=== PATIENT | male | born 1940 | race Caucasian/White ===

== ENCOUNTER → 2020-01-08 09:26 | Outpatient (BNVA) | payer MEDICARE, OTHER, SELFPAY | PROVIDERS: Family Provider Nurse Practitioner Family; PCP Nurse Practitioner Family; Visit Provider Nurse Practitioner | DX: I10 Essential (primary) hypertension (principal); E55.9 Vitamin D deficiency, unspecified; M19.90 Unspecified osteoarthritis, unspecified site; E05.90 Thyrotoxicosis, unspecified without thyrotoxic crisis or storm; E78.5 Hyperlipidemia, unspecified; N40.1 Benign prostatic hyperplasia with lower urinary tract symptoms | CPT/HCPCS: 80053; 80061; 81000; 82306; 82607; 84443; 85025 ==

== ENCOUNTER → 2020-06-29 10:17 | Outpatient (BNVA) | payer MEDICARE, OTHER, SELFPAY | PROVIDERS: Family Provider Nurse Practitioner Family; PCP Nurse Practitioner Family; Visit Provider Nurse Practitioner Family | DX: Z12.5 Encounter for screening for malignant neoplasm of prostate (principal); E05.90 Thyrotoxicosis, unspecified without thyrotoxic crisis or storm; I10 Essential (primary) hypertension; N40.1 Benign prostatic hyperplasia with lower urinary tract symptoms; M19.90 Unspecified osteoarthritis, unspecified site; E55.9 Vitamin D deficiency, unspecified; K59.00 Constipation, unspecified | CPT/HCPCS: 80053; 80061; 84443; 85025; G0103 ==

== ENCOUNTER → 2020-08-08 08:35 | Outpatient (BNVA) | payer MEDICARE, OTHER, SELFPAY | PROVIDERS: Family Provider Nurse Practitioner Family; PCP Nurse Practitioner Family; Visit Provider Urology | DX: R97.20 Elevated prostate specific antigen [PSA] (principal); N40.1 Benign prostatic hyperplasia with lower urinary tract symptoms; N52.1 Erectile dysfunction due to diseases classified elsewhere | CPT/HCPCS: 81003; 84153 ==

== ENCOUNTER → 2020-12-07 08:18 | Outpatient (BNVA) | payer MEDICARE, OTHER, SELFPAY | PROVIDERS: Family Provider Nurse Practitioner Family; PCP Nurse Practitioner Family; Visit Provider Urology | DX: R33.9 Retention of urine, unspecified (principal); R97.20 Elevated prostate specific antigen [PSA] | CPT/HCPCS: 81003; G0103 ==

== ENCOUNTER 2021-01-02 12:50 | Outpatient (CLI) | payer MEDICARE, OTHER, SELFPAY ==
--- NOTE | 2021-01-02 14:30 | CTR_ITS ---
PROCEDURE INFORMATION: Exam: CT Abdomen And Pelvis With Contrast Exam date and time: 01/02/2021 1:27 PM Age: 80 years old Clinical indication: Abdominal pain; Generalized; Prior surgery; Surgery type: RT hip; Patient HX: Centralized abd pain, HX of skin cancer; Additional info: R10.9 - unspecified abdominal pain TECHNIQUE: Imaging protocol: Computed tomography of the abdomen and pelvis with contrast. Radiation optimization: All CT scans at this facility use at least one of these dose optimization techniques: automated exposure control; mA and/or kV adjustment per patient size (includes targeted exams where dose is matched to clinical indication); or iterative reconstruction. Contrast material: OMNI 300; Contrast volume: 95 ml; Contrast route: INTRAVENOUS (IV); COMPARISON: No relevant prior studies available. RADIATION DOSE METRICS: Total DLP (mGy-cm): 1637.77 FINDINGS: Lungs: Mild atelectasis versus fibrosis noted at the lung bases. Liver: Unremarkable. No mass. Gallbladder and bile ducts: Small calcified gallstones are seen in the dependent portion of the gallbladder. There are no secondary signs of cholecystitis. No biliary dilatation. Pancreas: The pancreas is normal in appearance. No pancreatic duct dilatation. Spleen: The spleen is normal in size and appearance. Adrenal glands: Nonspecific 3.7 cm left adrenal mass noted. Right adrenal gland is unremarkable. Kidneys and ureters: The kidneys are normal in morphology. No hydronephrosis. No solid mass. Stomach and bowel: No acute gastric abnormality demonstrated. The small bowel is unremarkable as demonstrated. Minimal diverticulosis of the colon. No acute diverticulitis. Appendix: No evidence of appendicitis. Intraperitoneal space: No pneumoperitoneum. No significant fluid collection. Vasculature: The aorta is atherosclerotic. No aortic aneurysm. Lymph nodes: No pathologically enlarged lymph nodes are demonstrated. Urinary bladder: The urinary bladder is unremarkable in appearance. Reproductive: Mild prostate gland enlargement noted. Bones/joints: Right hip prosthesis noted. Scoliosis and degeneration of the lumbar spine noted. Soft tissues: Unremarkable. CT/CT abdomen pelvis w con* [id number] IMPRESSION: 1. Right hip prosthesis noted. 2. Small calcified gallstones are seen in the dependent portion of the gallbladder. There are no secondary signs of cholecystitis. No biliary dilatation. 3. Nonspecific 3.7 cm left adrenal mass noted. Non-emergent adrenal CT is recommended. Non-emergent chemical shift MRI (CS-MR) may be considered. (Reference: Carmen) 4. Mild prostate gland enlargement noted. 5. No acute abnormality demonstrated in the abdomen and pelvis. REFERENCES: Carmen HAZEL, et al. Management of Incidental Adrenal Masses: A White Paper of the ACR Incidental Findings Committee. J Am Cynthia Radiol. 2017;14(8):9133-8162. Radiation Dose CTDIVOL = (mGy): DLP = 1637.77 (mGy-cm)
[2021-01-02] MEDS: iohexol 300 mg/mL 100 mL Btl IV (15:23)
[2021-01-02] MEDS: iohexol 300 mg/mL 50 mL Btl PO (15:27)
== END 2021-01-02 12:51 | disposition home or self-care (01) ==
LOC: RAD 12:58
PROVIDERS: PCP Nurse Practitioner Family; Visit Provider Nurse Practitioner Family
DX: R10.9 Unspecified abdominal pain (principal); K80.80 Other cholelithiasis without obstruction; N40.0 Benign prostatic hyperplasia without lower urinary tract symptoms; E05.90 Thyrotoxicosis, unspecified without thyrotoxic crisis or storm
CPT/HCPCS: 74177; 80053; 80061; 84443; 85025

== ENCOUNTER 2021-01-27 08:10 | Outpatient (CLI) | payer MEDICARE, OTHER, SELFPAY ==
--- NOTE | 2021-01-27 08:00 | US_ITS ---
WS: [id number] RIGHT UPPER QUADRANT ULTRASOUND HISTORY: R10.11 - Right upper quadrant pain COMPARISON: None available. Liver: 16.6 cm in length. Normal size liver. No bile duct dilatation or mass. Gallbladder: Normally distended gallbladder with numerous small stones in the lumen. CBD: 0.3 cm Pancreas: Completely obscured by bowel gas. Right kidney: 10.4 cm in length. Normal size and echogenicity. No hydronephrosis or mass. Aorta and IVC: Poorly visualized. No ascites. US/US gall bladder [id number] IMPRESSION: 1. Cholelithiasis without evidence for acute cholecystitis. No bile duct dilat ation. 2. Negative liver.
== END 2021-01-27 08:11 | disposition home or self-care (01) ==
LOC: US 08:11
PROVIDERS: PCP Nurse Practitioner Family; Visit Provider Surgery
DX: R10.11 Right upper quadrant pain (principal); K80.20 Calculus of gallbladder without cholecystitis without obstruction
CPT/HCPCS: 76705

== ENCOUNTER 2021-02-02 09:01 | Outpatient (CLI) | payer MEDICARE, OTHER, SELFPAY ==
--- NOTE | 2021-02-02 09:10 | FL_ITS ---
WS: [id number] ESOPHAGRAM WITH FLUOROSCOPY HISTORY: DYSPHAGIA COMPARISON: None available. FLUOROSCOPY TIME: 1.5 minutes. Esophagus and swallowing function: Patient swallowed the barium mixture without difficulty. Tertiary contractions and dysmotility noted throughout the esophagus with pharyngeal coating of the barium aft er swallowing. No high-grade area of stenosis. Prominent pharyngeal pouch on the LEFT. Cricopharyngea l spasm and large vertebral body osteophytes encroach upon the cervical esophagus at the C6-7 level. Very mild narrowing of the distal esophagus. The barium tablet was held up briefly at the GE junction . Gastroesophageal reflux: Delayed emptying of the esophagus with to and fro motion. Hiatal hernia: Small reducible. FL/FL barium swallow [id number] IMPRESSION: 1. No high-grade stricture or soft tissue mass identified. 2. Large osteophytes at C6-7 encroach upon the posterior cervical esophagus an d there is a large LEFT lateral pharyngeal pouch. 3. Tertiary contractions within the esophagus with delay in emptying. 4. Very mild narrowing of the distal esophagus but the barium tablet was only briefly delayed before exiting into the stomach.
--- NOTE | 2021-02-02 09:10 | CT_ITS ---
WS: [id number] CT NECK WITH CONTRAST HISTORY: DYSPHAGIA TECHNIQUE: Contiguous 5 mm axial images are performed through the neck with intravenous contrast. Sag ittal and coronal reformats are also submitted. All CT scans at [facility] use at least o ne of these dose optimization techniques: automated exposure control; mA and/or kV adjustment per pat ient size (includes targeted exams where dose is matched to clinical indication); or iterative recons truction. CONTRAST: CONTRAST: Omnipaque 300; 95 mL IV. DLP: 1323.53 mGycm COMPARISON: None available. Significant amount of beam hardening artifact through the tongue base from dental amalgam. There is v carlos eduardo slight prominence at the tongue base by believe this is artifact and distortion. There is no iden tifiable oropharyngeal lesion or mass. Torus tubarius and fossa of Rosenmuller and parapharyngeal fat are normal. Small bilateral cervical chain lymph nodes. These lymph nodes are not enlarged. Thyroid gland and salivary glands are normally enhancing with no masses. Increase in the cervical lordosis. Disc space narrowing and degeneration most significant at C3-4 and C6-7 and C7-T1. Visualized portions of the skull base demonstrate no abnormalities. Orbits and globes are within norm al limits. No soft tissue masses. Moderate amount of calcified plaque in the extracranial carotid bif urcations. Stenosis less than 50%. Intracranial carotid artery plaque is also identified. Visualized paranasal sinuses and mastoid air cells are normal. Lung apices are clear. Moderate calcification in the aortic arch. CT/CT neck w con* [id number] IMPRESSION: 1. Artifact from patient's dental amalgam is obscuring portions of the tongue base and oral pharynx. 2. No identifiable soft tissue mass or adenopathy. 3. Moderate atherosclerosis of the intracranial and extracranial carotid arter ies. No high-grade stenosis.
[2021-02-02] MEDS: iohexol 300 mg/mL 100 mL Btl IV (09:41)
== END 2021-02-02 09:02 | disposition home or self-care (01) ==
LOC: RADWPI 09:06
PROVIDERS: PCP Nurse Practitioner Family; Visit Provider Specialist
DX: R13.10 Dysphagia, unspecified (principal); I65.29 Occlusion and stenosis of unspecified carotid artery; M25.78 Osteophyte, vertebrae
CPT/HCPCS: 70491; 74220; Q9967

== ENCOUNTER 2021-02-03 08:14 | Outpatient (CLI) | payer MEDICARE, OTHER, SELFPAY ==
--- NOTE | 2021-02-03 08:23 | FL_ITS ---
WS: [id number] Exam: FL barium swallow modifd [id number] Date/Time of Exam: 02/03/2021 8:50 AM Reason For Exam: Other dysphagia Fluoroscopy time: minutes Modified barium swallow was performed in conjunction with the speech therapy service. Swallowing function at the level of oropharynx was normal. There was no aspiration or penetration int o the laryngeal inlet. The patient tolerated thin liquid, thick liquid, pudding consistency, nectar c onsistency, and solid barium mixture foodstuffs without difficulty. The patient ingested the barium p ill without difficulty. The barium pill passed into the stomach without delay. FL/FL barium swallow modifd [id number] IMPRESSION: 1. Normal swallowing function. No indication of aspiration or penetration. A report of findings and recommendations will also be provided by the speech th erapy department.
== END 2021-02-03 08:15 | disposition home or self-care (01) ==
LOC: RAD 08:16
PROVIDERS: PCP Nurse Practitioner Family; Visit Provider Specialist
DX: R13.10 Dysphagia, unspecified (principal)
CPT/HCPCS: 74230; 92611

== ENCOUNTER → 2021-06-08 08:36 | Outpatient (BNVA) | payer MEDICARE, OTHER, SELFPAY | PROVIDERS: PCP Nurse Practitioner Family; Visit Provider Urology | DX: R97.20 Elevated prostate specific antigen [PSA] (principal); N40.1 Benign prostatic hyperplasia with lower urinary tract symptoms; R33.9 Retention of urine, unspecified; N52.1 Erectile dysfunction due to diseases classified elsewhere | CPT/HCPCS: 81003; 84153 ==

== ENCOUNTER → 2021-06-28 15:55 | Outpatient (BNVA) | payer MEDICARE, OTHER, SELFPAY | PROVIDERS: PCP Nurse Practitioner Family; Visit Provider Nurse Practitioner Family | DX: E05.90 Thyrotoxicosis, unspecified without thyrotoxic crisis or storm (principal); I10 Essential (primary) hypertension; E55.9 Vitamin D deficiency, unspecified; K59.00 Constipation, unspecified | CPT/HCPCS: 80053; 80061; 82306; 84443; 85025 ==

== ENCOUNTER → 2021-11-20 15:51 | Outpatient (BNVA) | payer MEDICARE, OTHER, SELFPAY | PROVIDERS: PCP Nurse Practitioner Family; Visit Provider Nurse Practitioner Family | DX: I10 Essential (primary) hypertension (principal); E78.5 Hyperlipidemia, unspecified; E05.90 Thyrotoxicosis, unspecified without thyrotoxic crisis or storm; K59.00 Constipation, unspecified; K21.9 Gastro-esophageal reflux disease without esophagitis; M19.90 Unspecified osteoarthritis, unspecified site | CPT/HCPCS: 80053; 80061; 84443; 85025 ==

== ENCOUNTER 2022-06-12 08:39 | Outpatient (CLI) | payer MEDICARE, SELFPAY ==
[2022-06-12 09:45] LABS: Prostate Specific AG Urology 13.56 ng/mL (0-4)
== END 2022-06-12 08:40 | disposition home or self-care (01) ==
LOC: LAB 08:49
PROVIDERS: PCP Nurse Practitioner Family; Visit Provider Urology
DX: R97.20 Elevated prostate specific antigen [PSA] (principal); N40.1 Benign prostatic hyperplasia with lower urinary tract symptoms; N52.1 Erectile dysfunction due to diseases classified elsewhere
CPT/HCPCS: 36415; 81003; 84153; 99213

== ENCOUNTER 2022-07-15 09:38 | Emergency (ER) | payer MEDICARE, SELFPAY ==
[2022-07-15 09:45] VITALS: BP 153/79; PULSE 102; RESP 16; TEMP 37.9; O2SAT 89; BMI 28.1
--- NOTE | 2022-07-15 10:06 | XRR_ITS ---
PROCEDURE INFORMATION: Exam: XR Chest Exam date and time: 07/15/2022 11:23 AM Age: 81 years old Clinical indication: Cough and dyspnea. TECHNIQUE: Imaging protocol: Radiologic exam of the chest. Views: 1 view. COMPARISON: CR XR chest 2V* [id number] 02/18/2018 4:21 PM FINDINGS: Lungs: There is mild peribronchial wall thickening. No pulmonary consolidation. Pleural spaces: No pleural effusion. No pneumothorax. Heart/Mediastinum: The heart appears larger which may be exaggerated by reduced lung volumes and AP technique. No gross evidence of pneumomediastinum. Bones/joints: Old right-sided rib fractures are noted. No gross fracture. XR/XR chest 1V portable [id number] IMPRESSION: 1. Mild peribronchial wall thickening; query viral infection/bronchitis, chronic bronchitis and/or asthma. 2. The heart appears larger which may be exaggerated by reduced lung volumes and AP technique.
--- NOTE | 2022-07-15 10:11 | W.ED.GENADLT ---
HPI - General Adult General: Chief complaint: General Medical Stated complaint: sore throat and cough Time Seen by Provider: 07/15/22 10:04 Source: patient Mode of arrival: ambulatory Limitations: no limitations History of Present Illness: 81-year-old male presents emergency room with complaint of sore throat for the last week. He was seen earlier this week and started on amoxicillin for the sore throat he states he is not really had much relief of symptoms. He gets short of breath with any exertion. He is not normally on oxygen at home in triage he reported his oxygen sat 89% on room air in the exam room however he is at 95 to 96% room air. His oxygen was off at the time. He has had intermittent fevers at home responsive to Tylenol cough is been nonproductive he denies any abdominal pain any nausea vomiting or diarrhea. Onset (ago): day(s) (5) Severity: mild Pain Consistency: constant Relieving factors: none Exacerbating factors: none Associated symptoms: Deny chest pain, confusion, cough, diaphoresis, decreased appetite, dyspnea, fevers/chills, headache(s), malaise, nausea, rash, palpitations, seizures, short of breath, syncope, vomiting or weakness Treatments prior to arrival: none Review of Systems Const: Reports: fever(s) and chills; Denies: fatigue, malaise or diaphoresis ENMT: Reports: throat pain, odynophagia and hoarseness; Denies: ear or mastoid pain, nasal discharge or nasal congestion Card: Denies: chest pain, palpitations or syncope Resp: Denies: dyspnea GI: Denies: abdominal pain, nausea or vomiting : Denies: flank pain, dysuria, urinary frequency or urinary urgency Skin/Breast: Denies: rash Neuro: Denies: headache(s) or confusion PFSH ED PFSH: Medical History Benign prostatic hyperplasia with lower urinary tract symptoms Chronic osteoarthritis Constipation Dyslipidemia Erectile dysfunction due to diseases classified elsewhere Essential hypertension Hyperthyroidism Incomplete bladder emptying Surgical History H/O inguinal hernia repair History of hernia repair umbilical History of lumbar surgery (~2007) History of right hip replacement Hx of cataract surgery Status post colonoscopy Family History Father , AT AGE 53 Myocardial infarction (lateral wall) Mother , AT AGE 83 Parkinsons Other Hypertension Denies family history of Diabetes Clotting disorder Chronic kidney disease (CKD) Bleeding disorder Lung disease Cancer Social History Smoking and tobacco status: never smoked Second hand smoke exposure: No Smoking risk assessment/counseling performed?: No Alcohol intake: never Desire information about alcohol rehabilitation?: No Counseling given: No Desire information about substance/drug rehabilitation?: No Counseling given: No Adopted: No Caregiver/support person: No Lives independently: Yes Household members: spouse Housing: House Marital status: Number of children: 3 Highest education level completed: High School Graduate Current occupational status: employed Pets and animals: No History of recent travel: No Current gender identity: Male Course Vital Signs: Vital signs: Vital Signs Temperature 100.3 F H 07/15/22 09:45 Pulse Rate 101 H 07/15/22 13:47 Respiratory Rate 17 07/15/22 13:47 Blood Pressure 153/79 07/15/22 09:45 Pulse Oximetry 97 07/15/22 13:47 Oxygen Delivery Me thod 07/15/22 13:28 MDM - General Adult Medical Decision Making Labs and imaging reviewed. flu negative discharge home supportive cares steroid Dosepak. Given history not suspicious for COVID. Medical Records I reviewed the patient's medical records. Lab Data I reviewed the patient's lab results. 07/15/22 10:23 07/15/22 10:23 Radiology Impressions Chest X-Ray 07/15/22 10:06 IMPRESSION: 1. Mild peribronchial wall thickening; query viral infection/bronchitis, chronic bronchitis and/or asthma. 2. The heart appears larger which may be exaggerated by reduced lung volumes and AP technique. Laboratory Results WBC 6.1 10^3/uL (4.0-10.0) 07/15/22 10:23 RBC 4.96 10^6/uL (4.1-5.3) 07/15/22 10:23 Hgb 15.4 g/dL (11.7-16.6) 07/15/22 10:23 Hct 45.9 % (42.0-52.0) 07/15/22 10:23 MCV 92.5 fl (80-94) 07/15/22 10:23 MCH 31.0 pg (28.0-34.0) 07/15/22 10:23 MCHC 33.6 g/dL (30.0-36.0) 07/15/22 10:23 RDW 13.4 % (12.1-15.1) 07/15/22 10:23 Plt Count 166 10^3/cmm (130-400) 07/15/22 10:23 MPV 9.2 fL (7.4-10.4) 07/15/22 10:23 Neut % (Auto) 76.3 % 07/15/22 10:23 Lymph % (Auto) 14.8 % 07/15/22 10:23 [place] % (Auto) 8.4 % 07/15/22 10:23 Eos % (Auto) 0.0 % 07/15/22 10:23 Baso % (Auto) 0.2 % 07/15/22 10:23 Neut # (Auto) 4.66 10^3/uL (1.8-7.7) 07/15/22 10:23 Lymph # (Auto) 0.9 10^3/uL (0.8-4.8) 07/15/22 10:23 [place] # (Auto) 0.5 10^3/uL (0.2-0.9) 07/15/22 10:23 Eos # (Auto) 0.0 10^3/uL (0.0-0.8) 07/15/22 10:23 Baso # (Auto) 0.0 10^3/uL (0.0-0.1) 07/15/22 10:23 Nucleated RBC % (auto) 0 % 07/15/22 10:23 Nucleated RBCs # 0.0 /100WBC 07/15/22 10:23 Sodium 132 mmol/L (136-145) L 07/15/22 10:23 Potassium 3.7 mmol/L (3.5-5.1) 07/15/22 10:23 Chloride 98 mmol/L (98-107) 07/15/22 10:23 Carbon Dioxide 24 mmol/L (22-29) 07/15/22 10:23 Anion Gap 13.7 (5-19) 07/15/22 10:23 BUN 11 mg/dL (8-23) 07/15/22 10:23 Creatinine 1.0 mg/dL (0.7-1.2) 07/15/22 10:23 GFR Calculation Not Reportable 07/15/22 10:23 Glucose 103 mg/dL (65-115) 07/15/22 10:23 Calculated Osmolality 274 mOsm/kg (285-295) L 07/15/22 10:23 Lactic Acid 1.3 mmol/L (0.5-2.2) 07/15/22 10:23 Calcium 8.4 mg/dL (8.5-10.5) L 07/15/22 10:23 Total Bilirubin 0.4 mg/dL (0.15-1.2) 07/15/22 10:23 AST 19 U/L (0-40) 07/15/22 10:23 ALT 11 U/L (0-41) 07/15/22 10:23 Alkaline Phosphatase 69 U/L (40-130) 07/15/22 10:23 Total Protein 7.3 g/dL (6.6-8.7) 07/15/22 10:23 Albumin 3.8 g/dL (3.5-5.2) 07/15/22 10:23 Globulin 3.5 g/dL (1.3-4.6) 07/15/22 10:23 Influenza Type A Ag negative (Negative) 07/15/22 10:43 Influenza Type B Ag negative (Negative) 07/15/22 10:43 Discharge Plan Discharge Patient Disposition: Home Clinical Impression: Pharyngitis Condition: Stable Prescriptions: New Medrol (Michael) 4 mg tablets,dose pack See Rx Instructions .ROUTE .COMPLEX Qty: 21 0RF Rx Instructions: orally per package directions No Action aspirin 81 mg tablet,delayed release (DR/EC) 81 mg PO DAILY ascorbate calcium (vitamin C) 500 mg capsule 500 mg PO DAILY sildenafil 100 mg tablet 100 mg PO DAILY PRN (Reason: sexual activity) Qty: 20 0RF Rx Instructions: 1 hour before intercourse on EMPTY STOMACH cd-qr-HR-lycop-omega 3,6,9 #3 400-300 mcg capsule PO DAILY PreserVision AREDS [id number],[id number] efdd-nl-ikcs capsule 1 cap PO BID ascorbate calcium (vitamin C) 500 mg tablet 500 mg PO DAILY MegaRed Joint Care 353 mg capsule PO DAILY polyethylene glycol 3350 [Miralax] 17 gram/dose powder 17 g PO .prn levofloxacin 500 mg tablet 500 mg PO DAILY Qty: 7 0RF Paxlovid (EUA) 300 mg (150 mg x 2)-100 mg tablets,dose pack See Rx Instructions PO .COMPLEX Qty: 30 0RF Rx Instructions: take TWO 150 mg tablets of nirmatrelvir with ONE 100 mg tablet of ritonavir twice daily for 5 days PO tamsulosin 0.4 mg capsule See Rx Instructions .ROUTE .COMPLEX Qty: 180 3RF Dose Instruction: TAKE ONE CAPSULE BY MOUTH TWICE DAILY Rx Instructions: TAKE ONE CAPSULE BY MOUTH TWICE DAILY omeprazole 40 mg capsule,delayed release(DR/EC) 40 mg PO DAILY 90 Days Qty: 90 1RF losartan 50 mg tablet 50 mg PO DAILY Qty: 90 1RF propylthiouracil 50 mg tablet 100 mg PO BID Qty: 360 1RF amoxicillin 875 mg tablet 875 mg PO BID Qty: 20 0RF Discharge Orders: Discharge ED (Routine); Ordered 07/15/22 Ordered By: Alvin Lozano Referrals: Diana Gonzalez FNP-C [Primary Care Provider] - Discharge Diet: Usual diet Discharge Activity: Resume usual activity Patient Instructions: Opioid Safety, Pain Management Activity Restrictions/Additional Instructions: You are seen for an upper respiratory infection and sore throat. Your flu swabs were negative chest x-ray shows bronchiolitis. Continue the previously prescribed antibiotics. We will give you a short course of steroids that should help with the sore throat symptoms. Coding Level of Care Code ED Lock Tender Chief Operator for Arlene Nunn
--- NOTE | 2022-07-15 10:17 | ECG_ITS ---
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 Measurements Intervals [place] Rate: 97 P: 52 UT: 149 QRS: 29 QRSD: 99 T: 72 QT: 339 QTc: 431 Interpretive Statements SINUS RHYTHM WITH FREQUENT VENTRICULAR PREMATURE COMPLEXES ABNORMAL RHYTHM ECG No previous ECG available for comparison Electronically Signed On 07-16-2022 14:11:58 LVN LPN by Karen Ordoñez M.D. [id number]
[2022-07-15] MEDS: sodium chloride 0.9% 1,000 ML 999 ML IV (10:39)
[2022-07-15 11:04] LABS: Basophils % 0.2 %; Hematocrit 45.9 % (42.0-52.0); Hemoglobin 15.4 g/dL (11.7-16.6); Lymphocytes # 0.9 10^3/uL (0.8-4.8); Lymphocytes % 14.8 %; Mean Corpuscular HGB Conc 33.6 g/dL (30.0-36.0); Mean Corpuscular Volume 92.5 fl (80-94); Mean Platelet Volume 9.2 fL (7.4-10.4); Monocytes # 0.5 10^3/uL (0.2-0.9); Monocytes % 8.4 %; Neutrophils # 4.66 10^3/uL (1.8-7.7); Neutrophils % 76.3 %; Nucleated Red Blood Cells % 0 %; Platelet Count 166 10^3/cmm (130-400); Red Blood Count 4.96 10^6/uL (4.1-5.3); Red Cell Distribution Width 13.4 % (12.1-15.1); White Blood Count 6.1 10^3/uL (4.0-10.0)
[2022-07-15 11:15] LABS: Influenza A by IFA negative (Negative); Influenza B by IFA negative (Negative)
[2022-07-15 11:30] LABS: Lactic Sepsis W/Reflex 1.3 mmol/L (0.5-2.2)
[2022-07-15 11:31] LABS: Alanine Aminotransferase 11 U/L (0-41); Albumin Level 3.8 g/dL (3.5-5.2); Alkaline Phosphatase 69 U/L (40-130); Anion Gap 13.7 (5-19); Aspartate Amino Transferase 19 U/L (0-40); Blood Urea Nitrogen 11 mg/dL (8-23); Calcium 8.4 mg/dL (8.5-10.5); Carbon Dioxide 24 mmol/L (22-29); Chloride 98 mmol/L (98-107); Globulin 3.5 g/dL (1.3-4.6); Glucose 103 mg/dL (65-115); Osmolality Calculated 274 mOsm/kg (285-295); Potassium 3.7 mmol/L (3.5-5.1); Sodium 132 mmol/L (136-145); Total Bilirubin 0.4 mg/dL (0.15-1.2); Total Protein 7.3 g/dL (6.6-8.7)
[2022-07-15] MEDS: ipratropium-albuterol 3 mL Neb INHALATION (13:25)
[2022-07-15 13:28] VITALS: PULSE 101; RESP 17; O2SAT 97
[2022-07-15 13:47] VITALS: PULSE 101; RESP 17; O2SAT 97
== END 2022-07-15 13:32 | disposition home or self-care (01) ==
PROVIDERS: Emergency Provider Family Medicine; PCP Nurse Practitioner Family
DX: J02.9 Acute pharyngitis, unspecified (principal); R06.02 Shortness of breath
CPT/HCPCS: 36415; 71045; 80053; 83605; 85025; 87040; 87804; 93005; 94640; 96374; 99285; J2930; J7030

== ENCOUNTER → 2022-07-17 11:01 | Outpatient (BNVA) | payer MEDICARE, SELFPAY | PROVIDERS: PCP Nurse Practitioner Family; Visit Provider Nurse Practitioner Family | DX: R05.9 Cough, unspecified (principal) | CPT/HCPCS: 87426 ==

== ENCOUNTER → 2022-08-15 15:03 | Outpatient (BNVA) | payer MEDICARE, SELFPAY | PROVIDERS: PCP Nurse Practitioner Family; Visit Provider Internal Medicine Cardiovascular Disease | DX: I65.23 Occlusion and stenosis of bilateral carotid arteries (principal); I10 Essential (primary) hypertension; E78.5 Hyperlipidemia, unspecified; K21.9 Gastro-esophageal reflux disease without esophagitis | CPT/HCPCS: 99214 ==

== ENCOUNTER → 2022-08-27 16:52 | Outpatient (BNVA) | payer MEDICARE, SELFPAY | PROVIDERS: PCP Nurse Practitioner Family; Visit Provider Urology | DX: R97.20 Elevated prostate specific antigen [PSA] (principal) | CPT/HCPCS: 84153 ==

== ENCOUNTER → 2022-10-03 14:30 | Outpatient (BNVA) | payer MEDICARE, SELFPAY | PROVIDERS: PCP Nurse Practitioner Family; Visit Provider Urology | DX: R97.20 Elevated prostate specific antigen [PSA] (principal) | CPT/HCPCS: 84153 ==

== ENCOUNTER → 2022-10-11 10:54 | Outpatient (BNVA) | payer MEDICARE, SELFPAY | PROVIDERS: PCP Nurse Practitioner Family; Visit Provider Urology | DX: R97.20 Elevated prostate specific antigen [PSA] (principal); N52.1 Erectile dysfunction due to diseases classified elsewhere; N40.1 Benign prostatic hyperplasia with lower urinary tract symptoms | CPT/HCPCS: 81003; 99213 ==

== ENCOUNTER → 2022-12-05 11:21 | Outpatient (BNVA) | payer MEDICARE, SELFPAY | PROVIDERS: PCP Nurse Practitioner Family; Visit Provider Nurse Practitioner Family | DX: K59.00 Constipation, unspecified (principal); I10 Essential (primary) hypertension; R97.20 Elevated prostate specific antigen [PSA] | CPT/HCPCS: 74018; 80053; 80061; 84153; 84443; 85025 ==

== ENCOUNTER → 2023-07-24 11:00 | Outpatient (BNVA) | payer MEDICARE, SELFPAY | PROVIDERS: PCP Nurse Practitioner Family; Visit Provider Internal Medicine Cardiovascular Disease | DX: I10 Essential (primary) hypertension (principal); I65.23 Occlusion and stenosis of bilateral carotid arteries; E78.5 Hyperlipidemia, unspecified | CPT/HCPCS: 99214 ==

== ENCOUNTER → 2023-09-05 10:28 | Outpatient (BNVA) | payer MEDICARE, SELFPAY | PROVIDERS: PCP Nurse Practitioner Family; Visit Provider Nurse Practitioner Family | DX: I10 Essential (primary) hypertension (principal); E05.90 Thyrotoxicosis, unspecified without thyrotoxic crisis or storm; K21.9 Gastro-esophageal reflux disease without esophagitis; N40.1 Benign prostatic hyperplasia with lower urinary tract symptoms; K59.00 Constipation, unspecified | CPT/HCPCS: 80053; 80061; 84153; 84443; 85025 ==

== ENCOUNTER 2023-11-19 16:17 | Outpatient (CLI) | payer MEDICARE, SELFPAY ==
[2023-11-19] MEDS: iohexol 350 mg/mL 500 mL Btl (per mL) PO (17:01)
--- NOTE | 2023-11-19 17:30 | CT_ITS ---
WS: [id number] Examination: CT abdomen pelvis w con* [id number] Reason for Exam: R10.9 - Unspecified abdominal pain Date: November 19, 2023 Comparison: January 02, 2021 DLP: 434.[address] scans at [facility] use at least one of these dose optimization techniques: automated e xposure control; mA and/or kV adjustment per patient size (includes targeted exams where dose is matc hed to clinical indication); or iterative reconstruction. Findings: The heart is mildly prominent in size. There is coronary artery calcification and disease. There is no pleural effusion. Minimal basilar atelectasis is suspected. The liver is normal in size and appearance. No mass is seen. The portal vein is patent. There is chol elithiasis. This spleen is unremarkable. The right adrenal gland is unremarkable. Again the left adrenal mass is identified. It measures up to 3.8 x 2.7 cm and appears stable in size. Hounsfield units are greater than 30. The kidneys are well-perfused. There is no stone or hydronephrosis. No mass is seen. The aorta is not enlarged. There is extensive atherosclerotic change with calcified plaque. The pancreas is unremarkable. There is no small bowel obstruction. There is increased stool in the colon. There is no free fluid. T here is no free air. There is a small hiatal hernia with thickening of the distal esophagus. Mild distal antral thickening of the stomach is identified without surrounding inflammatory change. The prostate is significantly enlarged. It is inhomogenous. There is bladder indentation. The bladder is mildly distended and thick walled. There are solid nodules/adenopathy noted in the pelvis. One measures 15 mm in the right pelvis on deann ge 65/96 and another nodule measures 18 mm in the mid abdomen on image 59/96. There is a total right hip prosthesis with significant streak artifact present severe arthritic singletary es to the left hip are noted. There is scoliosis and degenerative changes noted involving the spine. Degenerative sclerosis/marrow signal changes noted throughout the lumbar spine. There is a stable sclerotic suspected bone island in the left sacrum. Impression: There are new solid masses in the pelvis which may represent adenopathy as above. The prostate gland is significantly enlarged and intermargin is. This indents the mildly thick walled urinary bladder. This is similar to the previous study. There is cholelithiasis. The left adrenal mass is stable.
[2023-11-19 17:37] LABS: Blood Urea Nitrogen 15 mg/dL (8-23)
[2023-11-19] MEDS: iohexol 350 mg/mL 500 mL Btl (per mL) IV (17:42)
== END 2023-11-19 16:18 | disposition home or self-care (01) ==
LOC: RAD 16:17
PROVIDERS: PCP Nurse Practitioner Family; Visit Provider Nurse Practitioner Family
DX: R10.9 Unspecified abdominal pain (principal); K59.00 Constipation, unspecified; R97.20 Elevated prostate specific antigen [PSA]; N40.1 Benign prostatic hyperplasia with lower urinary tract symptoms; K80.20 Calculus of gallbladder without cholecystitis without obstruction
CPT/HCPCS: 74177; 82565; 84520; Q9967

== ENCOUNTER 2023-11-29 07:23 | Outpatient (CLI) | payer MEDICARE, SELFPAY ==
--- NOTE | 2023-11-29 08:00 | US_ITS ---
WS: [id number] RIGHT UPPER QUADRANT ULTRASOUND HISTORY: R10.11 - Right upper quadrant pain COMPARISON: 01/27/2021, 11/19/2023 Liver: 15.7 cm in length. Normal size liver and echogenicity. No bile duct dilatation or mass. Portal Vein: Normal hepatopetal flow with monophasic waveform. Gallbladder: Nondistended gallbladder with cholelithiasis. No evidence for acute cholecystitis. This gallstone was also present on the prior study from 01/27/2021. CBD: 0.5 cm Pancreas: Completely obscured by bowel gas. Right kidney: 10.2 cm in length. Normal size and echogenicity. No hydronephrosis or mass. Aorta and IVC: Unremarkable abdominal aorta and IVC. No ascites. IMPRESSION: 1. Study limited by GI tract content. 2. Cholelithiasis. No evidence for acute cholecystitis. 3. Obscured pancreas.
== END 2023-11-29 07:24 | disposition home or self-care (01) ==
LOC: RAD 07:24
PROVIDERS: PCP Nurse Practitioner Family; Visit Provider Nurse Practitioner Family
DX: K80.20 Calculus of gallbladder without cholecystitis without obstruction (principal); R10.11 Right upper quadrant pain
CPT/HCPCS: 76705

== ENCOUNTER → 2024-03-26 14:41 | Outpatient (BNVA) | payer MEDICARE, SELFPAY | PROVIDERS: PCP Nurse Practitioner Family; Visit Provider Internal Medicine | DX: I10 Essential (primary) hypertension (principal); I65.23 Occlusion and stenosis of bilateral carotid arteries; E78.5 Hyperlipidemia, unspecified; M19.90 Unspecified osteoarthritis, unspecified site; N40.1 Benign prostatic hyperplasia with lower urinary tract symptoms | CPT/HCPCS: 80053; 84443; 85025; 99214 ==

== ENCOUNTER 2024-06-20 10:47 | Inpatient (IN) | payer MEDICARE, SELFPAY ==
[2024-06-20] VITALS (11 sets, daily range): BP systolic 100–176; BP diastolic 68–90; PULSE 71–93; RESP 15–17; TEMP 36.6–37.3; O2SAT 94–98; BMI 26.6
--- NOTE | 2024-06-20 11:09 | XRR_ITS ---
PROCEDURE INFORMATION: Exam: XR Chest Exam date and time: 06/20/2024 11:12 AM Age: 83 years old Clinical indication: Other: Syncope; Patient HX: PT states he was eating breakfast when he felt extremely weak, had pain down his neck and his arms and felt like he was about to pass out. PT family states he was diaphoretic as well. EMS was called, but they told family they did not need to transport PT to er. PT denies any chest pain or shortness of breath. PT only complaint is weakness. TECHNIQUE: Imaging protocol: Radiologic exam of the chest. Views: 1 view. COMPARISON: CR XR chest 1V portable [id number] 07/15/2022 11:23 AM FINDINGS: Lungs: Unremarkable. No consolidation or mass. Pleural spaces: Unremarkable. No pleural effusion. No pneumothorax. Heart/Mediastinum: Unremarkable. No cardiomegaly. Bones/joints: Old rib fractures are noted on the right. XR/XR chest 1V portable [id number] IMPRESSION: No acute findings.
--- NOTE | 2024-06-20 11:18 | ECG_ITS ---
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 Measurements Intervals [place] Rate: 72 P: 58 OK: 160 QRS: 39 QRSD: 98 T: 11 QT: 404 QTc: 445 Interpretive Statements SINUS RHYTHM Compared to ECG 07/15/2022 10:17:27 Ventricular premature complex(es) no longer present Electronically Signed On 06-20-2024 13:32:38 CDT by Apurva Burkett M.D. [email or web address]
[2024-06-20 11:21] LABS: Basophils % 0.4 %; Eosinophils % 0.9 %; Hematocrit 43.3 % (37-53); Lymphocytes # 1.6 10^3/uL (0.8-4.8); Lymphocytes % 34.8 %; Mean Corpuscular Hemoglobin 31.6 pg (27-33); Mean Corpuscular Volume 95.6 fl (82-101); Mean Platelet Volume 9.2 fL (7.4-10.4); Monocytes # 0.4 10^3/uL (0.2-0.9); Monocytes % 9.1 %; Neutrophils # 2.52 10^3/uL (1.8-7.7); Neutrophils % 54.6 %; Nucleated Red Blood Cells % 0 %; Platelet Count 190 10^3/cmm (157-399); Red Blood Count 4.53 10^6/uL (3.85-5.65); Red Cell Distribution Width 13.2 % (12.1-15.1); White Blood Count 4.62 10^3/uL (3.29-11.43)
[2024-06-20] MEDS: aspirin 81 mg Chew Tablet 324 MG PO (11:22)
[2024-06-20 11:32] LABS: INR 0.92 (0.8-1.2)
[2024-06-20 11:33] LABS: Partial Thromboplastin Time 30.2 SECONDS (23.9-36.7)
[2024-06-20 11:36] LABS: D Dimer 0.54 ug/mLFEU (0-0.59)
--- NOTE | 2024-06-20 11:38 | PC.PHAR ---
Pt presented current med list from his wallet. Losartan has been decreased from 50mg to 25 mg daily. Pt no longer taking colace-takes Miralax and Metamucil for constipation, instead. Pt no longer taking Sildenafil or Tadalafil-removed from med list.
[2024-06-20 11:41] LABS: Troponin(5th) Baseline 25 ng/L (0-15)
[2024-06-20 11:48] LABS: Alanine Aminotransferase 18 U/L (0-41); Albumin Level 4.2 g/dL (3.5-5.2); Alkaline Phosphatase 59 U/L (40-130); Anion Gap 14.7 (5-19); Aspartate Amino Transferase 23 U/L (0-40); Blood Urea Nitrogen 12 mg/dL (8-23); Calcium 9.2 mg/dL (8.5-10.5); Carbon Dioxide 26 mmol/L (22-29); Chloride 103 mmol/L (98-107); Creatinine Clr Calc Pharmacy 68.5459; Globulin 2.3 g/dL (1.3-4.6); Glucose 82 mg/dL (65-115); NT Pro B Type Natriuretic Pept 625 pg/mL (0-450); Osmolality Calculated 289 mOsm/kg (285-295); Potassium 3.7 mmol/L (3.5-5.1); Sodium 140 mmol/L (136-145); Total Bilirubin 0.5 mg/dL (0.15-1.2); Total Protein 6.5 g/dL (6.6-8.7)
[2024-06-20] MEDS: isosorbide mononitrate ER 30 mg Tablet PO (12:17)
--- NOTE | 2024-06-20 12:33 | ED_ITS ---
HPI - Weakness 2 General: Chief complaint: Weakness Stated complaint: weakness, fainted, arm pain, neck pain Time Seen by Provider: 06/20/24 10:55 History of Present Illness: This patient is an 83-year-old white male who presents to the emergency department for evaluation of a syncopal episode. Patient's witnessed this. Patient had developed neck pain radiating into both shoulders at breakfast this morning and then passed out. His states he was out for about 2 minutes. He was then able to get up and she helped him sit down in the kitchen chair and he slumped down a little bit there. They called EMS and he was brought into the emergency department. Patient states he was diaphoretic after the incident. He is asymptomatic now. He has a history of hypertension and prostate cancer. No cardiac history. Review of Systems 2 General: Reports: 10 or more systems reviewed and unremarkable except in HPI and below Card: Reports: other (Syncope, neck pain radiating into both shoulders) [facility] ED 2 PFSH: Medical History Incomplete bladder emptying Erectile dysfunction due to diseases classified elsewhere Constipation Benign prostatic hyperplasia with lower urinary tract symptoms Hyperthyroidism Chronic osteoarthritis Dyslipidemia Essential hypertension Surgical History Status post colonoscopy History of right hip replacement Hx of cataract surgery History of lumbar surgery (~2007) H/O inguinal hernia repair History of hernia repair umbilical Family History Father , AT AGE 53 Myocardial infarction (lateral wall) Mother , AT AGE 83 Parkinson disease Other Hypertension Denies family history of Diabetes Clotting disorder Chronic kidney disease (CKD) Bleeding disorder Lung disease Cancer Social History Smoking and tobacco/nicotine status: never used tobacco/nicotine Second hand smoke exposure: No Alcohol intake: never Substance/Drug Use: never Adopted: No Caregiver/support person: No Lives independently: Yes Household members: spouse Housing: House Marital status: Number of children: 3 Highest education level completed: High School Graduate Current occupational status: employed Pets and animals: No Do you think of yourself as: Straight/Heterosexual Current gender identity: Male Physical Exam 2 Const: COMMON NORMALS: no acute distress, patient oriented x3 and no limitations GENERAL APPEARANCE: cooperative and comfortable HENMT: COMMON NORMALS: normocephalic, atraumatic, Normal nasal mucous membranes and turbinates present, moist oral mucous membranes and oropharynx normal HEAD & SCALP: normal to inspection, normocephalic and atraumatic F BERNARDINO & SINUS: normal facial exam NOSE: Normal nasal mucous membranes and turbinates present Eye: COMMON NORMALS: Equal, round and reactive pupils present, EOMs intact bilaterally and conjunctivae normal GENERAL EYE: appearance normal, both eyes and all related structures CONJUNCTIVA: Yes conjunctivae normal PUPIL: Yes Equal, round and reactive pupils present Neck/C-Spine: COMMON NORMALS: supple and no JVD Chest: COMMONS NORMALS: normal inspection of the chest Resp: COMMON NORMALS: normal respiratory effort and clear to auscultation bilaterally AUSCULTATION: clear to auscultation bilaterally Cardio: COMMON NORMALS: no JVD, regular rate, regular rhythm, No gallops present (Cardio), No murmurs present (Cardio) and No rub (Cardio) RATE: r egular rate RHYTHM: regular rhythm GI: COMMON NORMALS: Normal to inspection, nondistended, normoactive bowel sounds present, Soft to palpation and non-tender AUSCULTATION: Yes normoactive bowel sounds PALPATION: Yes Soft to palpation : COMMON NORMALS: Yes no CVA tenderness BLADDER/KIDNEY EXAM: Yes no CVA tenderness Back/Pelvis: COMMON NORMALS: no CVA tenderness and thoracic and lumbar spine normal to inspection Extremity: COMMON NORMALS: normal to inspection Neuro: COMMON NORMALS: patient oriented x3 and CN's II-XII intact bilaterally Psych: COMMON NORMALS: mental status grossly normal, Normal thought process present and cooperative THOUGHT PROCESS: Normal thought process present Skin: COMMON NORMALS: no rashes or lesions noted, turgor normal and no jaundice GENERAL SKIN EXAM: no rashes or lesions noted and turgor normal Course 2 Vital Signs: Vital signs: Vital Signs Temperature 97.8 F 06/20/24 10:56 Pulse Rate 77 06/20/24 10:56 Respiratory Rate 17 06/20/24 10:56 Blood Pressure 176/85 06/20/24 10:56 Pulse Oximetry 98 06/20/24 10:56 Oxygen Delivery Me thod Room Air 06/20/24 10:56 MDM - Weakness Medical Decision Making EKG revealed sinus rhythm with no ST segment abnormalities. Chest x-ray was normal. CBC normal. CMP normal. BNP was 625. Baseline troponin 25. Coags were normal. D-dimer 0.54. Patient has remained asymptomatic. His systolic blood pressure was in the 170s so I did order 30 mg of Imdur p.o. This is most likely a cardiogenic syncope and patient will need to be admitted for further cardiac workup and telemetry. I discussed case with Dr. Alves, hospitalist. He did accept the patient. He wanted me to discuss the case with cardiology as well. I then discussed the case with Dr. Burkett. Patient will be admitted to the [facility]. He is stable. Lab Data 06/20/24 11:16 06/20/24 11:16 Radiology Impressions Chest X-Ray 06/20/24 11:09 IMPRESSION: No acute findings. Laboratory Results WBC 4.62 10^3/uL (3.29-11.43) 06/20/24 11:16 RBC 4.53 10^6/uL (3.85-5.65) 06/20/24 11:16 Hgb 14.30 g/dL (11.27-16.99) 06/20/24 11:16 Hct 43.3 % (37-53) 06/20/24 11:16 MCV 95.6 fl (82-101) 06/20/24 11:16 MCH 31.6 pg (27-33) 06/20/24 11:16 MCHC 33.0 g/dL (30-55) 06/20/24 11:16 RDW 13.2 % (12.1-15.1) 06/20/24 11:16 Plt Count 190 10^3/cmm (157-399) 06/20/24 11:16 MPV 9.2 fL (7.4-10.4) 06/20/24 11:16 Neut % (Auto) 54.6 % 06/20/24 11:16 Lymph % (Auto) 34.8 % 06/20/24 11:16 [place] % (Auto) 9.1 % 06/20/24 11:16 Eos % (Auto) 0.9 % 06/20/24 11:16 Baso % (Auto) 0.4 % 06/20/24 11:16 Neut # (Auto) 2.52 10^3/uL (1.8-7.7) 06/20/24 11:16 Lymph # (Auto) 1.6 10^3/uL (0.8-4.8) 06/20/24 11:16 [place] # (Auto) 0.4 10^3/uL (0.2-0.9) 06/20/24 11:16 Eos # (Auto) 0.0 10^3/uL (0.0-0.8) 06/20/24 11:16 Baso # (Auto) 0.0 10^3/uL (0.0-0.1) 06/20/24 11:16 Nucleated RBC % (auto) 0 % 06/20/24 11:16 Nucleated RBCs # 0.0 /100WBC 06/20/24 11:16 PT 12.60 SECONDS (12.1-14.9) 06/20/24 11:16 INR 0.92 (0.8-1.2) 06/20/24 11:16 APTT 30.2 SECONDS (23.9-36.7) 06/20/24 11:16 D-Dimer 0.54 ug/mLFEU (0-0.59) 06/20/24 11:16 Sodium 140 mmol/L (136-145) 06/20/24 11:16 Potassium 3.7 mmol/L (3.5-5.1) 06/20/24 11:16 Chloride 103 mmol/L (98-107) 06/20/24 11:16 Carbon Dioxide 26 mmol/L (22-29) 06/20/24 11:16 Anion Gap 14.7 (5-19) 06/20/24 11:16 BUN 12 mg/dL (8-23) 06/20/24 11:16 Creatinine 0.8 mg/dL (0.7-1.2) 06/20/24 11:16 GFR Calculation Not Reportable 06/20/24 11:16 Glucose 82 mg/dL (65-115) 06/20/24 11:16 Calculated Osmolality 289 mOsm/kg (285-295) 06/20/24 11:16 Calcium 9.2 mg/dL (8.5-10.5) 06/20/24 11:16 Total Bilirubin 0.5 mg/dL (0.15-1.2) 06/20/24 11:16 AST 23 U/L (0-40) 06/20/24 11:16 ALT 18 U/L (0-41) 06/20/24 11:16 Alkaline Phosphatase 59 U/L (40-130) 06/20/24 11:16 Troponin T Baseline 25 ng/L (0-15) H 06/20/24 11:16 NT-Pro-B Natriuret Pep 625 pg/mL (0-450) H 06/20/24 11:16 Total Protein 6.5 g/dL (6.6-8.7) L 06/20/24 11:16 Albumin 4.2 g/dL (3.5-5.2) 06/20/24 11:16 Globulin 2.3 g/dL (1.3-4.6) 06/20/24 11:16 All radiology interpretation(s) finalized by discharge Discharge Plan Discharge Condition: Stable Prescriptions: No Action aspirin 81 mg tablet,delayed release (DR/EC) 81 mg PO DAILY PreserVision AREDS 14,320-226-200 eesl-zn-gjjj capsule 1 cap PO BID polyethylene glycol 3350 [Miralax] 17 gram/dose powder 17 g PO DAILY PRN (Reason: Constipation) losartan 25 mg tablet 25 mg PO DAILY Qty: 90 3RF abiraterone 500 mg tablet 1,000 mg PO DAILY Rx Instructions: must be taken on empty stomach, at least 1 hr before or 2 hrs after a meal/food prednisone 5 mg tablet 5 mg PO DAILY omeprazole 40 mg capsule,delayed release(DR/EC) 40 mg PO DAILY 90 Days Qty: 90 1RF propylthiouracil 50 mg tablet 100 mg PO BID Qty: 360 1RF multivitamin Tablet 1 tab PO QAM ascorbate calcium (vitamin C) [Jodi-C] 500 mg Tablet 500 mg PO DAILY zashh-to-5-bnc-eeh-qfbjlbl-ast [MegaRed [place]-3 Krill Oil] 1,000-230-60 mg Capsule 1 cap PO DAILY Metamucil 3.4 gram/5.4 gram Powder 1 tbsp PO DAILY PRN (Reason: Constipation) Rx Instructions: mix into at least 8 oz of water or juice before administering tamsulosin 0.4 mg capsule 0.4 mg PO BID Referrals: Diana Gonzalez FNP-C [Primary Care Provider] - Coding Level of Care Code ED Environmental Services Attendant for Chg Fwd Related Data Home Medications Medication Instructions Recorded Confirmed polyethylene glycol 3350 17 17 g PO DAILY PRN Constipation 08/08/20 06/20/24 gram/dose oral powder (Miralax) vitamins A,C,T-uoom-yzmsok 4,296 1 cap PO BID 08/08/20 06/20/24 mcg-226 mg-90 mg capsule (PreserVision AREDS) aspirin 81 mg tablet,delayed 81 mg PO DAILY 01/02/21 06/20/24 release abiraterone 500 mg tablet 1,000 mg PO DAILY 03/26/24 06/20/24 prednisone 5 mg tablet 5 mg PO DAILY 03/26/24 06/20/24 ascorbate calcium (vitamin C) 500 500 mg PO DAILY 06/20/24 06/20/24 mg tablet krill 1,000 mg-omega-3 230 mg-dha 1 cap PO DAILY 06/20/24 06/20/24 60 oo-nwt-qgrnaykae-astaxan capsule (MegaRed [place]-3 Krill Oil) multivitamin 1 tab PO QAM 06/20/24 06/20/24 psyllium husk 3.4 gram/5.4 gram 1 tbsp PO DAILY PRN Constipation 06/20/24 06/20/24 oral powder (Metamucil) tamsulosin 0.4 mg capsule 0.4 mg PO BID 06/20/24 06/20/24 Previous Rx's Medication Instructions Recorded losartan 25 mg tablet 25 mg PO DAILY #90 tabs 07/24/23 omeprazole 40 mg capsule,delayed 40 mg PO DAILY 90 days #90 caps 09/05/23 release propylthiouracil 50 mg tablet 100 mg (2 x 50 mg) PO BID #360 tabs 04/13/24 Allergies Allergy/AdvReac Type Severity Reaction Status Date / Time No Known Allergies Allergy Verified 03/26/24 15:32
--- NOTE | 2024-06-20 13:09 | ECG_ITS ---
[employer] [facility] Test Date: 2024-06-20 Pat Name: Antwan Salazar Department: Room: Gender: Male Ug Designer: : 1940 Requested By: Conor Burger Order Number: [id number] Yessica MD: Apurva Burkett M.D. Measurements Intervals [place] Rate: 87 P: 53 ND: 146 QRS: 12 QRSD: 102 T: 52 QT: 389 QTc: 468 Interpretive Statements SINUS RHYTHM WITH FREQUENT VENTRICULAR PREMATURE COMPLEXES NONSPECIFIC T-WAVE ABNORMALITY ABNORMAL RHYTHM ECG Compared to ECG 06/20/2024 11:18:54 Ventricular premature complex(es) now present T-wave abnormality now present Electronically Signed On 06-20-2024 13:49:07 CDT by Apurva Burkett M.D. [id number]
--- NOTE | 2024-06-20 13:29 | P.HP_ITS ---
Providers/Chief Complaint 2 Admitting Physician: Rayshawn Alves MD Primary Care Provider: Diana Gonzalez, PROCESSING SUPERVISOR-C Chief Complaint: weakness, fainted, arm pain, neck pain History of Present Illness Antwan Salazar is a 83 year old male with a past medical history of hypertension, history of prostate cancer, history of BPH, who presents to [facility] due to syncope and collapse episode. Currently patient is alert oriented x 3, following all commands, no chest pain, no palpitations, no shortness of breath, no facial droop, no slurring of words, no focal weakness, no focal paresthesias, no change in vision, no blurry vision. According to patient, he woke up at about 9 this morning, was having breakfast with his , at the breakfast table, he suddenly did not feel well, he does not remember the event well but he does report neck pain sudden onset, discomfort in his shoulders and into his chest, and that is the last thing he can remember, he is not exactly sure if he completely passed out he tells me that the event was quite hazy, but his had come over he was not responding appropriately, so they were actually able to help get him up and sit him into a chair, and it took him about 2 to 3 minutes before he came to him his normal self. No report of seizure-like episodes, no reported focal weakness, slurring of words, facial droop, focal paresthesias, denies a prior history of syncope denies a prior history of chest pain, no significant cardiovascular history, he does report and once today he did a lot of physical exertion, Review of Systems 2 Const: Denies: fever(s) Card: Reports: chest pain GI: Denies: abdominal pain : Denies: flank pain Neuro: Denies: headache(s), numbness in extremities, weakness in extremities, vertigo, confusion, Slurred speech present, difficulty communicating thoughts or seizure-like activity Endo: Denies: polyuria Medications/Allergies Home Medications Medication Instructions Recorded Confirmed Last Taken Type polyethylene glycol 3350 17 17 g PO DAILY PRN Constipation 08/08/20 06/20/24 Unknown History gram/dose oral powder (Miralax) vitamins A,C,Z-lqzt-ewzwtc 4,296 1 cap PO BID 08/08/20 06/20/24 06/20/24 History mcg-226 mg-90 mg capsule (PreserVision AREDS) aspirin 81 mg tablet,delayed 81 mg PO DAILY 01/02/21 06/20/24 06/20/24 History release losartan 25 mg tablet 25 mg PO DAILY #90 tabs 07/24/23 06/20/24 06/20/24 Rx omeprazole 40 mg capsule,delayed 40 mg PO DAILY 90 days #90 caps 09/05/23 06/20/24 06/20/24 Rx release abiraterone 500 mg tablet 1,000 mg PO DAILY 03/26/24 06/20/24 06/20/24 History prednisone 5 mg tablet 5 mg PO DAILY 03/26/24 06/20/24 06/20/24 History propylthiouracil 50 mg tablet 100 mg (2 x 50 mg) PO BID #360 tabs 04/13/24 06/20/24 06/20/24 Rx ascorbate calcium (vitamin C) 500 500 mg PO DAILY 06/20/24 06/20/24 06/20/24 History mg tablet krill 1,000 mg-omega-3 230 mg-dha 1 cap PO DAILY 06/20/24 06/20/24 06/20/24 History 60 kd-cpb-ihvzwyrxt-astaxan capsule (MegaRed [place]-3 Krill Oil) multivitamin 1 tab PO QAM 06/20/24 06/20/24 06/20/24 History psyllium husk 3.4 gram/5.4 gram 1 tbsp PO DAILY PRN Constipation 06/20/24 06/20/24 Unknown History oral powder (Metamucil) tamsulosin 0.4 mg capsule 0.4 mg PO BID 06/20/24 06/20/24 06/20/24 History Allergies Allergy/AdvReac Type Severity Reaction Status Date / Time No Known Allergies Allergy Verified 03/26/24 15:32 PFSH Acute 2 PFSH: Medical History Incomplete bladder emptying Erectile dysfunction due to diseases classified elsewhere Constipation Benign prostatic hyperplasia with lower urinary tract symptoms Hyperthyroidism Chronic osteoarthritis Dyslipidemia Essential hypertension Surgical History Status post colonoscopy History of right hip replacement Hx of cataract surgery History of lumbar surgery (~2007) H/O inguinal hernia repair History of hernia repair umbilical Family History Father , AT AGE 53 Myocardial infarction (lateral wall) Mother , AT AGE 83 Parkinson disease Other Hypertension Denies family history of Diabetes Clotting disorder Chronic kidney disease (CKD) Bleeding disorder Lung disease Cancer Social History Smoking and tobacco/nicotine status: never used tobacco/nicotine Second hand smoke exposure: No Alcohol intake: never Substance/Drug Use: never Adopted: No Caregiver/support person: No Lives independently: Yes Household members: spouse Housing: House Marital status: Number of children: 3 Highest education level completed: High School Graduate Current occupational status: employed Pets and animals: No Do you think of yourself as: Straight/Heterosexual Current gender identity: Male Vitals/I&O/Wt Last Vital Signs Temp 97.8 F 06/20/24 10:56 Pulse 91 06/20/24 12:49 Resp 17 06/20/24 10:56 BP 169/90 06/20/24 12:49 Pulse Ox 97 06/20/24 12:49 O2 Del Method Room Air 06/20/24 12:30 Weight last 48 hrs Weight 77.111 kg Physical Exam 2 Const: COMMON NORMALS: no acute distress and patient oriented x3 HENMT: COMMON NORMALS: normocephalic HEAD & SCALP: normocephalic Neck/C-Spine: COMMON NORMALS: no JVD Resp: COMMON NORMALS: normal respiratory effort, No retractions, No use of accessory muscles and clear to auscultation bilaterally AUSCULTATION: clear to auscultation bilaterally Cardio: COMMON NORMALS: regular rate, regular rhythm, S1 normal heart sound present and S2 normal heart sound present RATE: regular rate RHYTHM: r egular rhythm HEART SOUNDS: S1 normal heart sound present and S2 normal heart sound present GI: COMMON NORMALS: Normal to inspection, nondistended, normoactive bowel sounds present, Soft to palpation and non-tender Extremity: COMMON NORMALS: no pedal edema Neuro: COMMON NORMALS: patient oriented x3, CN's II-XII intact bilaterally and moves all extremities Psych: COMMON NORMALS: mental status grossly normal Data 06/20/24 11:16 06/20/24 11:16 CXR: My impression: No focal infiltrates EKG 1: My Interpretation: Normal sinus rhythm, no acute ST-T wave changes A&P Assessment and plan (1) Syncope and collapse: (2) Chest pain: Plan Syncope and collapse episode -Chest discomfort sounds atypical but did radiate to both shoulders up to his neck -No acute ST-T wave changes on EKG ? Baseline troponin 25 ? Plan ? Monitor in cardiac stepdown unit ? Orthostatic vitals ? Telemetry monitoring ? Serial EKGs, serial troponins, telemetry monitoring ? Has received aspirin 325 in the emergency room continue 81 mg ? Continue atorvastatin ? Coreg 3.125 twice daily -Cardiac echo ? Carotid artery ultrasound ? CT of the head ? UA, TSH, D-dimer, A1c, lipid panel ? Further recommendations based on clinical progress ? Cardiology consult # Full code # Lovenox for DVT prophylaxis Attestations 2 Medical Necessity Statement*: Patient requires hospitalization, inpatient, 2 midnights, for syncope and collapse, chest pain Diagnoses Syncope and collapse R55 Chest pain R07.9
--- NOTE | 2024-06-20 13:31 | USCV_ITS ---
Antwan Salazar Age: 83 Gender: M : 1940 Exam Date: 06/20/2024 19:02 Ordering Phys: Rayshawn Alves MD Technologist: Dar Hamilton [place] [facility] [place]: [place] BP: 124 / 73 HR: 71 Rhythm: Sinus Technical Quality: Adequate MEASUREMENTS (Male / Female) Normal Values 2D ECHO LV Diastolic Diameter PLAX 4.9 cm 4.2 - 5.9 / 3.9 - 5.3 cm IVS Diastolic Thickness 1.6 cm 0.6 - 1.0 / 0.6 - 0.9 cm IVS Systolic Thickness 1.4 cm LVPW Diastolic Thickness 1.3 cm 0.6 - 1.0 / 0.6 - 0.9 cm LVPW Systolic Thickness 2.0 cm LVOT Diameter 2.2 cm LV Ejection Fraction 2D Teich 86.4 % LV Ejection Fraction MOD 4C 67.4 % LV Ejection Fraction MOD 2C 66.1 % LV Ejection Fraction 2C AL 69.1 % LA Diameter 3.5 cm RA Systolic Volume 4C AL 33.8 ml RA Systolic Volume 4C MOD 35.4 ml LA Sys Volume AL 38.8 cm cubed LA Sys Volume Index AL 20.2 cm cubed/m squared Aorta at Sinotubular Diameter 3.3 cm IVC Diameter 1.7 cm M-MODE LA Ao Ratio MM 1.3 MV E Point Septal Separation 0.9 cm AV Cusp Separation MM 2.0 cm DOPPLER AV Peak Velocity 99.3 cm/s LVOT Peak Velocity 95.0 cm/s AV Area Cont Eq vti 4.4 cm squared AV Area Cont Eq pk 3.6 cm squared MV Peak Velocity 112.0 cm/s MV Area PHT 4.0 cm squared Mitral E to A Ratio 0.5 TV Peak Velocity 241.5 cm/s TR Peak Velocity 251.0 cm/s TR Peak Gradient 25.2 mmHg TR Mean Velocity 213.0 cm/s TR Mean Gradient 18.7 mmHg TR Velocity Time Integral 63.3 cm PV Peak Velocity 81.0 cm/s RV Ejection Time 0.2 s FINDINGS Left Ventricle Mild left ventricle hypertrophy. Normal wall motion and thickening. Normal LV systolic function. Estimated LVEF normal 65%. Right Ventricle Normal right ventricular size and systolic function. Right Atrium Normal right atrial size. Left Atrium Normal left atrial size. Mitral Valve Thickened mitral valve. Mitral annular calcification. Trace mitral valve regurgitation. Aortic Valve Thickened aortic valve. No aortic valve stenosis. Tricuspid Valve Structurally normal tricuspid valve. Trace tricuspid valve regurgitation. Normal tricuspid valve gradient 25 mmHg. Pulmonic Valve Structurally normal pulmonic valve. Trace pulmonary valve regurgitation. Pericardium No pericardial effusion. Aorta Normal size aortic root and proximal ascending aorta. IVC Inferior vena cava not visualized. CONCLUSIONS Mild left ventricle hypertrophy. Normal LV systolic function. LVEF normal 65%. Normal right ventricle size and systolic function. No significant valvular abnormality noted. Normal right heart and pulmonary artery systolic pressures. Apurva Burkett MD (Electronically Signed) Final Date: 21 June 2024 10:39 S
--- NOTE | 2024-06-20 13:31 | CTR_ITS ---
PROCEDURE INFORMATION: Exam: CT Head Without Contrast Exam date and time: 06/20/2024 2:14 PM Age: 83 years old Clinical indication: Syncope and collapse TECHNIQUE: Imaging protocol: Computed tomography of the head without contrast. Radiation optimization: All CT scans at this facility use at least one of these dose optimization techniques: automated exposure control; mA and/or kV adjustment per patient size (includes targeted exams where dose is matched to clinical indication); or iterative reconstruction. COMPARISON: CT neck w con* [id number] 02/02/2021 9:37 AM RADIATION DOSE METRICS: Total DLP (mGy-cm): 1145.98 FINDINGS: Brain: Normal. No hemorrhage. Unremarkable white matter. No mass effect or acute infarct. Cerebral ventricles: No ventriculomegaly. No midline shift. Paranasal sinuses: Visualized sinuses are unremarkable. No fluid levels. Mastoid air cells: Visualized mastoid air cells are well aerated. Bones: Unremarkable. No acute fracture. Soft tissues: Unremarkable. CT/CT head wo con* [id number] IMPRESSION: No acute intracranial abnormality.
--- NOTE | 2024-06-20 13:31 | USR_ITS ---
PROCEDURE INFORMATION: Exam: US Duplex Bilateral Extracranial Arteries; Complete; Carotid Arteries Exam date and time: 06/20/2024 2:27 PM Age: 83 years old Clinical indication: Syncope and collapse TECHNIQUE: Imaging protocol: Real-time duplex ultrasound scan of the bilateral extracranial arteries combining rucker scale, color Doppler and spectral waveform analysis with image documentation. Complete exam. Exam focused on the carotid arteries. COMPARISON: CT head wo con* [id number] 06/20/2024 2:14 PM FINDINGS: Right common carotid artery: Unremarkable. No occlusion or stenosis. Waveforms are normal. Right internal carotid artery: Unremarkable. No occlusion or stenosis. Waveforms are normal. Calcified plaque noted. Right ICA/CCA ratio: Within normal limits. Right external carotid artery: No stenosis in the origin. Right vertebral artery: Unremarkable. Antegrade flow. Left common carotid artery: Unremarkable. No occlusion or stenosis. Waveforms are normal. Left internal carotid artery: Unremarkable. No occlusion or stenosis. Waveforms are normal. Calcified plaque noted. Left ICA/CCA ratio: Within normal limits. Left external carotid artery: No stenosis in the origin. Left vertebral artery: Unremarkable. Antegrade flow. US/CV carotid duplex BI* [id number] IMPRESSION: No carotid arterial stenosis. REFERENCES: SRU CRITERIA. The degree of internal carotid artery stenosis is based on criteria defined by the Society of Radiologists in Ultrasound (SRU). Normal is no stenosis. Mild is less than 50% stenosis. Moderate is 50-69% stenosis. Severe is greater than 69% stenosis to near occlusion. Near occlusion is a markedly narrowed lumen. Total occlusion is no detectable patent lumen.
[2024-06-20 13:40] LABS: Troponin 5 2HR 21.24 ng/L (0-15)
[2024-06-20 13:41] LABS: Troponin 5 2HR Delta -3.76 ABS# (0-10)
[2024-06-20 13:47] LABS: D Dimer 0.54 ug/mLFEU (0-0.59)
[2024-06-20 13:59] LABS: Chol HDL Ratio 3.63 mg/dL (1.0-5.00); Cholesterol 174 mg/dL (0-200); HDL Cholesterol 48 mg/dL (60-100); LDL Cholesterol Calculated 87 mg/dL (50-129); LDL HDL Ratio 1.81 RATIO (0.00-3.22); NT Pro B Type Natriuretic Pept 574 pg/mL (0-450); Thyroid Stimulating Hormone 1.48 uIU/mL (0.27-4.20); Triglycerides 195 mg/dL (0-150)
[2024-06-20 14:00] LABS: Estmated Average Glucose 108; Hemoglobin A1C 5.4 % (4.0-6.0)
[2024-06-20] MEDS: acetaminophen 325 mg Tablet 650 MG PO (14:01)
[2024-06-20] MEDS: enoxaparin 40 mg/0.4 mL Syringe SUBCUT (14:01)
[2024-06-20] MEDS: pantoprazole 40 mg SDV IVP (14:01)
--- NOTE | 2024-06-20 17:09 | ECG_ITS ---
[employer] Test Date: 2024-06-20 Pat Name: Antwan Salazar Department: Room: 111 Gender: Male Senior Cytotechnologist: : 1940 Requested By: Conor Burger Order Number: [id number] Yessica MD: Apurva Burkett M.D. Measurements Intervals [place] Rate: 71 P: 47 WA: 159 QRS: 14 QRSD: 102 T: 3 QT: 409 QTc: 446 Interpretive Statements SINUS RHYTHM NONSPECIFIC T-WAVE ABNORMALITY Compared to ECG 06/20/2024 13:48:31 Ventricular premature complex(es) no longer present T-wave abnormality still present Electronically Signed On 06-21-2024 14:14:53 NIGHT WAREHOUSE SELECTOR by Apurva Burkett M.D. [id number]
[2024-06-20] MEDS: PROPYLTHIOURACIL 50 MG 100 MG PO (17:45)
[2024-06-20] MEDS: tamsulosin 0.4 mg Capsule PO (17:45)
[2024-06-20] MEDS: carvedilol 3.125 mg Tablet PO (17:45)
[2024-06-20 18:25] LABS: Bilirubin Urine Negative (Negative); Blood Urine Negative (Negative); Glucose Urine UA Negative (Normal); Ketones Urine Negative (Negative); Leukocyte Esterase Urine Negative (Negative); Nitrate Urine Negative (Negative); Protein Urine Negative (Negative); Urine Appearance Clear (CLEAR); Urine Color Yellow (Yellow); Urobilinogen Urine 0.2 mg/dL (Negative)
[2024-06-20 18:28] LABS: Add Urine Microscopic? YES; Bacteria Urine None Seen /hpf; Hyaline Casts Urine 0-4 /lpf; RBC Urine 0-2 /hpf (0-2); Squamous Epithelial Cell Urine 0-5 /hpf (0-5); WBC Urine 0-5 /hpf (0-5)
--- NOTE | 2024-06-20 18:43 | P.CONIM_ITS ---
Providers/Reason For Consult 2 Consulting Physician/Specialty*: Dr. Burkett/cardiology Reason for Consult*: Syncope/abnormal EKG Requesting Physician: Dr. Lozano Attending Physician: Rayshawn Alves MD Primary Care Provider: ERMELINDA Olguin History of Present Illness History of Present Illness Antwan Salazar is a 83 year old male with a previous history of hypertension and BPH, who presented to the ER with an episode of likely syncope for a brief period of time likely from 1 to 2 minutes. Patient was sitting at the breakfast table and while having his breakfast if apparently felt unwell and followed by a brief period of syncope. Patient's claims that he completely passed out, however patient feels that he was a little bit aware of his surroundings even during the whole incidence. He did feel some tightness in both shoulders upper chest and around his neck for a brief period of time immediately afterwards. He also felt some generalized weakness. Clinically no signs and symptoms suggestive of any neurological event. He was fully aware once he came around. No neurological deficit. On arrival to the ER he was asymptomatic. EKG showed sinus rhythm with frequent PVCs. There were nonspecific ST changes. His blood pressure was normal. Of note patient has had a history of frequent PVCs as noted more than once on his previous EKGs in the past. He is reasonably active and in his daily routine life and denies any anginal symptoms. Currently his vitals are stable. Blood pressure normal. He does have an intermittent PVCs on the monitor since admission. No symptoms just above prolonged palpitation, orthopnea or PND. Of note patient had a almost similar episode in the past. Review of Systems 2 Narrative: Detailed 10 point systemic review unremarkable except for as mentioned above in the history of present illness. Medications/Allergies Home Medications Medication Instructions Recorded Confirmed Last Taken Type polyethylene glycol 3350 17 17 g PO DAILY PRN Constipation 08/08/20 06/20/24 Unknown History gram/dose oral powder (Miralax) vitamins A,C,I-zich-hklloc 4,296 1 cap PO BID 08/08/20 06/20/24 06/20/24 History mcg-226 mg-90 mg capsule (PreserVision AREDS) aspirin 81 mg tablet,delayed 81 mg PO DAILY 01/02/21 06/20/24 06/20/24 History release losartan 25 mg tablet 25 mg PO DAILY #90 tabs 07/24/23 06/20/24 06/20/24 Rx omeprazole 40 mg capsule,delayed 40 mg PO DAILY 90 days #90 caps 09/05/23 06/20/24 06/20/24 Rx release abiraterone 500 mg tablet 1,000 mg PO DAILY 03/26/24 06/20/24 06/20/24 History prednisone 5 mg tablet 5 mg PO DAILY 03/26/24 06/20/24 06/20/24 History propylthiouracil 50 mg tablet 100 mg (2 x 50 mg) PO BID #360 tabs 04/13/24 06/20/24 06/20/24 Rx ascorbate calcium (vitamin C) 500 500 mg PO DAILY 06/20/24 06/20/24 06/20/24 History mg tablet krill 1,000 mg-omega-3 230 mg-dha 1 cap PO DAILY 06/20/24 06/20/24 06/20/24 History 60 ik-jth-mqhgjwetl-astaxan capsule (MegaRed [place]-3 Krill Oil) multivitamin 1 tab PO QAM 06/20/24 06/20/24 06/20/24 History psyllium husk 3.4 gram/5.4 gram 1 tbsp PO DAILY PRN Constipation 06/20/24 06/20/24 Unknown History oral powder (Metamucil) tamsulosin 0.4 mg capsule 0.4 mg PO BID 06/20/24 06/20/24 06/20/24 History Allergies Allergy/AdvReac Type Severity Reaction Status Date / Time No Known Allergies Allergy Verified 03/26/24 15:32 Current Medications Generic Name Dose Route Start Last Admin Trade Name Silvano PRN Reason Stop Dose Admin Acetaminophen 650 mg 06/20/24 13:31 06/20/24 14:01 Acetaminophen 325 Mg Tablet PO 650 mg Q6H PRN Administration Mild/Mod Pain Or Temp >/= 101 Carvedilol 3.125 mg 06/20/24 18:00 06/20/24 17:45 Carvedilol 3.125 Mg Tablet PO 3.125 mg BID TETE Administration Enoxaparin Sodium 40 mg 06/20/24 13:31 06/20/24 14:01 Enoxaparin 40 Mg/0.4 Ml Syringe SUBCUT 40 mg Q24H TETE Administration Pantoprazole Sodium 40 mg 06/20/24 13:31 06/20/24 14:01 Pantoprazole 40 Mg Sdv IVP 40 mg Q24H TETE Administration Propylthiouracil 100 mg 06/20/24 18:00 06/20/24 17:45 Propylthiouracil 50 Mg Tablet PO 100 mg BID TETE Administration Tamsulosin HCl 0.4 mg 06/20/24 18:00 06/20/24 17:45 Tamsulosin 0.4 Mg Capsule PO 0.4 mg BID TETE Administration PFSH Acute 2 PFSH: Medical History Incomplete bladder emptying Erectile dysfunction due to diseases classified elsewhere Constipation Benign prostatic hyperplasia with lower urinary tract symptoms Hyperthyroidism Chronic osteoarthritis Dyslipidemia Essential hypertension Surgical History Status post colonoscopy History of right hip replacement Hx of cataract surgery History of lumbar surgery (~2007) H/O inguinal hernia repair History of hernia repair umbilical Family History Father , AT AGE 53 Myocardial infarction (lateral wall) Mother , AT AGE 83 Parkinson disease Other Hypertension Denies family history of Diabetes Clotting disorder Chronic kidney disease (CKD) Bleeding disorder Lung disease Cancer Social History Smoking and tobacco/nicotine status: never used tobacco/nicotine Second hand smoke exposure: No Alcohol intake: never Substance/Drug Use: never Adopted: No Caregiver/support person: No Lives independently: Yes Household members: spouse Housing: House Marital status: Number of children: 3 Highest education level completed: High School Graduate Current occupational status: employed Pets and animals: No Do you think of yourself as: Straight/Heterosexual Current gender identity: Male Vitals/I&O/Wt Last Vital Signs Temp 99.1 F 06/20/24 15:41 Pulse 76 06/20/24 15:44 Resp 16 06/20/24 15:41 BP 124/73 06/20/24 15:44 Pulse Ox 94 06/20/24 15:41 O2 Del Method Room Air 06/20/24 15:41 06/20/24 06/20/24 06/20/24 06:59 14:59 22:59 Intake Total 118 / 118 Balance 118 / 118 Weight last 48 hrs Weight 170 lb Weight 170 lb Physical Exam 2 Narrative: Patient laying comfortably in the bed. No respiratory distress. He is quite active considering his age. Const: COMMON NORMALS: no acute distress, patient oriented x3, healthy appearing and alert HENMT: OTHER: Normal Eye: OTHER: Normal Chest: OTHER: Normal Resp: OTHER: Good air entry bilaterally. No added sounds. Cardio: OTHER: Normal first and second heart sounds occasional PVC. There is mild soft systolic murmur at the left lower sternal border. There is no JVD. GI: OTHER: Abdominal soft nontender. Bowel sounds audible. Extremity: NARRATIVE EXTREMITY EXAM: Normal lower extremities. No lower extremity edema. Neuro: COMMON NORMALS: patient oriented x3 SENSORIUM/ORIENTATION: Yes alert OTHER: Grossly intact. Patient moves all 4 limbs. Skin: NARRATIVE SKIN EXAM: Warm and dry. Data 06/20/24 11:16 06/20/24 11:16 A&P Assessment and plan (1) Syncope and collapse: 83-year-old male patient with a history of hypertension and probable CA prostate admitted with 1. A brief episode of syncope of unclear etiology. Clinically most likely symptoms of syncope related to brief arrhythmia. Of note he has a long history of having PVCs on his routine EKGs. 2. Unlikely an acute cardiac ischemic event. 3. Clinically signs symptoms are unlikely due to any acute neurological pathology. 4. Blood pressure is stable now. Clinically no heart failure symptoms. Plan: 1. To rule out ACS with serial cardiac troponins and EKGs 2. Close monitor for any arrhythmia. 3. Agreed with starting him on beta-desmond. I recommend to use metoprolol instead of carvedilol. Recommend metoprolol 25 mg twice a day. 4. Echocardiogram and carotid ultrasound. 5. Patient will need likely Holter monitor/event monitor upon discharge. (2) Chest pain: Coding Level of Care Code 91970 Diagnoses Syncope and collapse R55 Chest pain R07.9 Time Spent (min) 35
[2024-06-20] MEDS: atorvastatin 40 mg Tablet PO (20:36)
[2024-06-21] VITALS (12 sets, daily range): BP systolic 108–176; BP diastolic 69–94; PULSE 60–96; RESP 15–18; TEMP 36.6–37.1; O2SAT 95–99
[2024-06-21 03:30] LABS: Basophils % 0.3 %; Eosinophils # 0.1 10^3/uL (0.0-0.8); Eosinophils % 1.4 %; Hematocrit 37.2 % (37-53); Lymphocytes # 2.2 10^3/uL (0.8-4.8); Lymphocytes % 34.9 %; Mean Corpuscular HGB Conc 33.6 g/dL (30-55); Mean Corpuscular Hemoglobin 32.3 pg (27-33); Mean Corpuscular Volume 96.1 fl (82-101); Mean Platelet Volume 9.7 fL (7.4-10.4); Monocytes # 0.5 10^3/uL (0.2-0.9); Monocytes % 8.1 %; Neutrophils # 3.53 10^3/uL (1.8-7.7); Neutrophils % 55.1 %; Nucleated Red Blood Cells % 0 %; Platelet Count 171 10^3/cmm (157-399); Red Blood Count 3.87 10^6/uL (3.85-5.65); Red Cell Distribution Width 13.4 % (12.1-15.1); White Blood Count 6.41 10^3/uL (3.29-11.43)
[2024-06-21 03:50] LABS: Anion Gap 12.7 (5-19); Blood Urea Nitrogen 13 mg/dL (8-23); Calcium 8.7 mg/dL (8.5-10.5); Carbon Dioxide 24 mmol/L (22-29); Chloride 109 mmol/L (98-107); Creatinine Clr Calc Pharmacy 68.5459; Glucose 94 mg/dL (65-115); Magnesium 2.2 mg/dL (1.7-2.3); Osmolality Calculated 294 mOsm/kg (285-295); Phosphorus 3.8 mg/dL (2.5-4.5); Potassium 3.7 mmol/L (3.5-5.1); Sodium 142 mmol/L (136-145)
[2024-06-21] MEDS: losartan 50 mg Tablet 25 MG PO (08:55)
[2024-06-21] MEDS: PREDNISONE 5 MG 1 EACH PO (08:55)
[2024-06-21] MEDS: PROPYLTHIOURACIL 50 MG 100 MG PO ×2 (08:56→18:40)
[2024-06-21] MEDS: metoprolol succinate ER (24 HR) 25 mg Tablet PO (08:56)
[2024-06-21] MEDS: tamsulosin 0.4 mg Capsule PO ×2 (08:56→18:40)
[2024-06-21] MEDS: aspirin 81 mg EC Tablet PO (08:56)
--- NOTE | 2024-06-21 11:36 | ECG_ITS ---
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
--- NOTE | 2024-06-21 13:54 | P.PN_ITS ---
Subjective 2 Subjective: Patient was seen this morning, no complaints overnight, he was able to ambulate, no lightheadedness, dizziness, no nausea, no vomiting, no chest pain, we discussed his test results, plan on n.p.o. midnight, for cardiac stress test tomorrow morning, spoke to cardiology, event monitor at discharge, plan on stress test tomorrow Vitals/I&O/Wt Last Vital Signs Temp 98.3 F 06/21/24 11:56 Pulse 61 06/21/24 11:56 Resp 18 06/21/24 11:56 BP 153/80 06/21/24 11:56 Pulse Ox 95 06/21/24 11:56 O2 Del Method Room Air 06/21/24 11:56 06/20/24 06/21/24 06/21/24 23:59 06:59 14:59 Intake Total 900 / 900 Output Total Balance 900 / 900 Weight last 48 hrs Weight 77.111 kg Weight 77.111 kg Weight 77.111 kg Physical Exam 2 Const: COMMON NORMALS: no acute distress and patient oriented x3 Resp: COMMON NORMALS: normal respiratory effort, No retractions, No use of accessory muscles and clear to auscultation bilaterally AUSCULTATION: clear to auscultation bilaterally Cardio: COMMON NORMALS: regular rate, regular rhythm, S1 normal heart sound present and S2 normal heart sound present RATE: regular rate RHYTHM: r egular rhythm HEART SOUNDS: S1 normal heart sound present and S2 normal heart sound present GI: COMMON NORMALS: Normal to inspection, nondistended, normoactive bowel sounds present and non-tender Extremity: COMMON NORMALS: no pedal edema Neuro: COMMON NORMALS: patient oriented x3 Psych: COMMON NORMALS: mental status grossly normal Data 06/21/24 02:22 06/21/24 02:22 A&P Assessment and plan (1) Syncope and collapse: (2) Chest pain: Plan Syncope and collapse episode -Chest discomfort sounds atypical but did radiate to both shoulders up to his neck -No acute ST-T wave changes on EKG ? Baseline troponin 25 ? Plan ? Monitor in cardiac stepdown unit ? Orthostatic vitals no acute findings ? Telemetry monitoring ? Serial EKGs, serial troponins, 6-hour troponin 20.5 telemetry monitoring ? Has received aspirin 325 in the emergency room continue 81 mg ? Continue atorvastatin ? Coreg 3.125 twice daily -Cardiac echo CONCLUSIONS Mild left ventricle hypertrophy. Normal LV systolic function. LVEF normal 65%. Normal right ventricle size and systolic function. No significant valvular abnormality noted. Normal right heart and pulmonary artery systolic pressures. ? Carotid artery ultrasound US/CV carotid duplex BI* [id number] IMPRESSION: No carotid arterial stenosis. ? CT of the head CT/CT head wo con* [id number] IMPRESSION: No acute intracranial abnormality. ? UA within normal limits, TSH within normal limits, D-dimer within normal limits, A1c within normal limits, lipid panel within normal limits ? Further recommendations based on clinical progress ? Cardiology consult # Full code # Lovenox for DVT prophylaxis Spoke to patient, spoke to nursing staff, spoke to cardiology, n.p.o. midnight, for stress test tomorrow morning, will need to be discharged with event monitor, spoke to cardiology, stop Coreg switched to metoprolol tart, 25 twice daily, stop losartan, reviewed echo, carotid ultrasound, head CT, blood work, EKG, TSH, A1c Attestations 2 Medical Necessity Statement*: Patient requires hospitalization for syncope collapse, chest pain, plan on cardiac stress test in the morning Diagnoses Syncope and collapse R55 Chest pain R07.9
[2024-06-21] MEDS: pantoprazole 40 mg SDV IVP (15:13)
[2024-06-21] MEDS: enoxaparin 40 mg/0.4 mL Syringe SUBCUT (15:14)
[2024-06-21] MEDS: metoprolol tartrate 25 mg Tablet PO (20:24)
[2024-06-21] MEDS: atorvastatin 40 mg Tablet PO (20:25)
[2024-06-22 03:09] LABS: Basophils % 0.4 %; Eosinophils # 0.1 10^3/uL (0.0-0.8); Eosinophils % 1.4 %; Hematocrit 37.7 % (37-53); Lymphocytes # 2.5 10^3/uL (0.8-4.8); Lymphocytes % 49.9 %; Mean Corpuscular HGB Conc 33.4 g/dL (30-55); Mean Corpuscular Hemoglobin 32.6 pg (27-33); Mean Corpuscular Volume 97.4 fl (82-101); Mean Platelet Volume 9.6 fL (7.4-10.4); Monocytes # 0.4 10^3/uL (0.2-0.9); Neutrophils # 2.02 10^3/uL (1.8-7.7); Neutrophils % 40.1 %; Nucleated Red Blood Cells % 0 %; Platelet Count 162 10^3/cmm (157-399); Red Blood Count 3.87 10^6/uL (3.85-5.65); Red Cell Distribution Width 13.1 % (12.1-15.1); White Blood Count 5.03 10^3/uL (3.29-11.43)
[2024-06-22 03:48] VITALS: BP 148/81; PULSE 58; TEMP 36.7
[2024-06-22 03:58] LABS: Anion Gap 11.6 (5-19); Blood Urea Nitrogen 15 mg/dL (8-23); Calcium 8.4 mg/dL (8.5-10.5); Carbon Dioxide 23 mmol/L (22-29); Chloride 109 mmol/L (98-107); Creatinine Clr Calc Pharmacy 60.9297; Glucose 93 mg/dL (65-115); Magnesium 2.1 mg/dL (1.7-2.3); Osmolality Calculated 291 mOsm/kg (285-295); Phosphorus 3.2 mg/dL (2.5-4.5); Potassium 3.6 mmol/L (3.5-5.1); Sodium 140 mmol/L (136-145)
[2024-06-22 05:57] VITALS: PULSE 56
[2024-06-22] MEDS: regadenoson 0.4 Mg/5 ml Syringe IVP (07:12)
[2024-06-22] MEDS: aminophylline 25 mg/mL SDV 20 mL IVP (07:16)
[2024-06-22 07:30] VITALS: BP 128/67; PULSE 62
[2024-06-22 08:00] VITALS: BP 177/94; PULSE 66; RESP 17; TEMP 36.7; O2SAT 98
[2024-06-22] MEDS: metoprolol tartrate 25 mg Tablet PO (08:44)
[2024-06-22] MEDS: aspirin 81 mg EC Tablet PO (08:45)
[2024-06-22] MEDS: tamsulosin 0.4 mg Capsule PO (08:45)
[2024-06-22] MEDS: PROPYLTHIOURACIL 50 MG 100 MG PO (08:45)
--- NOTE | 2024-06-22 09:41 | P.PN_ITS ---
Subjective 2 Subjective: This is a very pleasant 83-year-old gentleman who came in originally with an episode of syncope that lasted approximately 1 to 2 minutes. He stated he was just sitting in his chair and out of nowhere he got a pain in his shoulder and arm on the left side and went out . He did not fall but came back to consciousness on his own. He has a history of frequent PVCs. Echo showed EF of 65% normal wall motion. Delta troponin was negative. Carotid ultrasound and CT head normal. He states he has not ever had this happen before. No known cardiac history. No history of arrhythmias. Patient takes losartan at home for hypertension. He denies history of chest pain. Medications: Reviewed: Yes Vitals/I&O/Wt Last Vital Signs Temp 98.1 F 06/22/24 08:00 Pulse 66 06/22/24 08:00 Resp 17 06/22/24 08:00 BP 177/94 06/22/24 08:00 Pulse Ox 98 06/22/24 08:00 O2 Del Method Room Air 06/22/24 08:00 06/21/24 06/22/24 06/22/24 22:59 06:59 14:59 Intake Total 240 / 1140 360 / 360 Output Total 275 / 600 Balance 240 / 815 -275 / 540 360 / 360 Weight last 48 hrs Weight 173 lb 4.8 oz Weight 170 lb Weight 170 lb Weight 170 lb Physical Exam 2 Narrative: General: No apparent distress, healthy appearing, well nourished HENMT: normoceophalic Eye: PERRL Neck: No carotid bruit bilaterally Muskuloskeletal: Full ROM Respiratory: Normal respiratory effort, clear to auscultation bilaterally throughout all lung haas, no use of accessory muscles Cardio: No JVD, regular rate, regular rhythm, S1 S2 normal, no murmurs, peripheral pulses 2+ throughout Extremities: Full ROM, normal, normal capillary refill, no cyanosis or edema Neuro: Alert and oriented x4, no focal motor deficits Psych: Affect normal, denies suicidal ideation, mental status grossly normal Skin: No rashes or lesions noted, no wounds Data 06/22/24 02:00 06/22/24 02:00 Other data: Echo Complete 06/20/24 CONCLUSIONS Mild left ventricle hypertrophy. Normal LV systolic function. LVEF normal 65%. Normal right ventricle size and systolic function. No significant valvular abnormality noted. Normal right heart and pulmonary artery systolic pressures. A&P Assessment and plan (1) Syncope and collapse: Patient has had no other episodes since hospital stay. Current tests have been negative. To rule out acute coronary syndrome stress test has been performed. (2) PVC (premature ventricular contraction): Patient has metoprolol 25 mg p.o. twice daily that has been added. Patient was previously on metoprolol 25 daily. This has been increased to twice daily. Electrolytes normal. (3) Primary hypertension: Recent medication change in which losartan was discontinued. Patient was previously on metoprolol 25 daily. This has been increased to twice daily. Plan Plan is to get results of stress test. If this is negative, patient may need to be discharged home with an event monitor. Attestations 2 Medical Necessity Statement*: Deferred to primary Coding Level of Care Code Acute Code for [facility] Diagnoses Syncope and collapse R55 PVC (premature ventricular contraction) I49.3 Primary hypertension I10
--- NOTE | 2024-06-22 09:52 | PC.CHAP ---
Pastoral Care Encounter/Spiritual Assessment Type of Contact [] Declined project management instructor visit [] Patient/Family/Request visit [] Outpatient visit [] Follow-up visit [] Physician referral [] Code/Alert [x] Routine visit [] Staff referral [] Actively dying [] Patient sleeping [] Family support [] [] Out of room [] Palliative care [] [] Receiving care in room [] Pre-surgical visit [] Trauma [] Long length of stay [] ICU visit [] Other: Relational/Emotional Strength [] Patient feels connected with others/family/visitors/staff [] Distress [] Loneliness/isolation [] Abandonment Spirituality of Patient [x] Person of [place] [] Attends Sikh of their [place] [x] Believes in Prayer [] Reads Bible or Adventism materials [] There are Spiritual issues to be addressed Sas Etl Developer Interventions [x] Prayer [x] Active listening [] Non-anxious presence [] Spiritual/emotional support [] Crisis/trauma care [] Spiritual counseling [] Bereavement support [] Provided bereavement packet [x] Provided Bible/devotional materials [] Provided toy/stuffed animal, coloring book to patient or family member [] Provided Communion [] Anointing/[place] [] Salvation [x] Completed spiritual assessment [] Other: Impact on Illness or Injury [] Angry [] Fearful [] Anxious [] Often cries [] Exhaustion [] Unable to work [] Unable to attend orthodoxy [] Unable to walk/stand [] Unable to read [] Unable to drive [] Unable to eat/drink [] Unable to sleep [] Unable to be with family [] Patient intubated [] Other: Summary Time spent with patient 5 min
--- NOTE | 2024-06-22 11:36 | NMCV_ITS ---
NM dipak perf SPECT r/s* [id number] Antwan Salazar Age: 83 Gender: M : 1940 Exam Date: 06/22/2024 06:16 Ordering Phys: Rayshawn Alves MD Technologist: BECK Lima Exam Location: [facility] Indications: cp STRESS TEST Please [facility] IMAGE PROTOCOL Rest/Stress 1 Lexiscan Day Radiopharmaceutical Dose (mCi) Administration Site Administered by Rest: Tc-99m 10.6 IV Janie Palumbo, SODA TESTER Sestamibi Stress:Tc-99m 32.4 IV Janie Lezamagle, SODA TESTER Sestamibi Rest: 22-Jun-2024 60 Discovery 630 Stress: 22-Jun-2024 30 Discovery 630 0.4mg Lexiscan. Images obtained in supine and prone position. SPECT RESULTS Technical Quality: Good Raw Data Analysis: Normal Image Corrections: No attenuation or motion correction applied Summed Stress Score: 0 Summed Rest Score: 1 Summed Difference Score: 0 PERFUSION FINDINGS Medium sized area of decreased tracer uptake noted in basal to distal inferior wall on rest images which improved significantly on prone stress images suggestive of an artifact FUNCTIONAL RESULTS (calculated via Gated SPECT) Stress Image LV EF (%): 48 Stress EDV (mL):117 TID: 1.24 Stress ESV (mL):61 FUNCTIONAL FINDINGS: Left ventricular ejection fraction appeared to be mildly reduced 48% however nuclear stress test is not designed to accurately measure left ventricular ejection fraction please refer to echocardiogram. There appeared to be global hypokinesis. TID ratio is elevated which could be secondary to left ventricle hypertrophy. IMPRESSIONS This study is negative for ischemia low probability for obstructive coronary artery disease Rogelio Song MD (Electronically Signed) Final Date: 22 June 2024 11:07 S
[2024-06-22 11:41] VITALS: BP 145/71; PULSE 56; RESP 14; TEMP 36.6; O2SAT 95
--- NOTE | 2024-06-22 12:15 | PM.DCS ---
Discharge Providers Date of Admission: 06/20/24 12:32 Date of Discharge: June 22, 2024 Attending Provider at Admission: Rayshawn Alves MD Attending Provider at Discharge: Rayshawn Alves MD Primary Care Provider: ERMELINDA Olguin Diagnoses at Discharge Discharge Diagnosis (1) Syncope and collapse: Status: Acute (2) PVC (premature ventricular contraction): Status: Acute (3) Primary hypertension: Status: Acute Reason for Visit Reason for Visit: weakness, fainted, arm pain, neck pain Hospital Course Hospital Course Antwan Salazar is a 83 year old male with a past medical history of hypertension, history of prostate cancer, history of BPH, who presents to [facility] due to syncope and collapse episode. Currently patient is alert oriented x 3, following all commands, no chest pain, no palpitations, no shortness of breath, no facial droop, no slurring of words, no focal weakness, no focal paresthesias, no change in vision, no blurry vision. According to patient, he woke up at about 9 this morning, was having breakfast with his , at the breakfast table, he suddenly did not feel well, he does not remember the event well but he does report neck pain sudden onset, discomfort in his shoulders and into his chest, and that is the last thing he can remember, he is not exactly sure if he completely passed out he tells me that the event was quite hazy, but his had come over he was not responding appropriately, so they were actually able to help get him up and sit him into a chair, and it took him about 2 to 3 minutes before he came to him his normal self. No report of seizure-like episodes, no reported focal weakness, slurring of words, facial droop, focal paresthesias, denies a prior history of syncope denies a prior history of chest pain, no significant cardiovascular history, he does report and once today he did a lot of physical exertion, Syncope and collapse, with chest pain Syncope and collapse episode -Chest discomfort sounds atypical but did radiate to both shoulders up to his neck -No acute ST-T wave changes on EKG ? Baseline troponin 25 ? Monitor in cardiac stepdown unit, no acute events ? Orthostatic vitals no acute findings ? Telemetry monitoring ? Serial EKGs, serial troponins, 6-hour troponin 20.5 telemetry monitoring ? Has received aspirin 325 in the emergency room continue 81 mg ? Continue atorvastatin ? Coreg 3.125 twice daily -Cardiac echo CONCLUSIONS Mild left ventricle hypertrophy. Normal LV systolic function. LVEF normal 65%. Normal right ventricle size and systolic function. No significant valvular abnormality noted. Normal right heart and pulmonary artery systolic pressures. ? Carotid artery ultrasound US/CV carotid duplex BI* [id number] IMPRESSION: No carotid arterial stenosis. ? CT of the head CT/CT head wo con* [id number] IMPRESSION: No acute intracranial abnormality. ? UA within normal limits, TSH within normal limits, D-dimer within normal limits, A1c within normal limits, lipid panel within normal limits -stress test PERFUSION FINDINGS Medium sized area of decreased tracer uptake noted in basal to distal inferior wall on rest images which improved significantly on prone stress images suggestive of an artifact FUNCTIONAL RESULTS (calculated via Gated SPECT) Stress Image LV EF (%): 48 Stress EDV (mL):117 TID: 1.24 Stress ESV (mL):61 FUNCTIONAL FINDINGS: Left ventricular ejection fraction appeared to be mildly reduced 48% however nuclear stress test is not designed to accurately measure left ventricular ejection fraction please refer to echocardiogram. There appeared to be global hypokinesis. TID ratio is elevated which could be secondary to left ventricle hypertrophy. IMPRESSIONS This study is negative for ischemia low probability for obstructive coronary artery disease -Patient was relatively asymptomatic during hospitalization, no recurrent chest pain, no significant telemetry events -Will discharge him on aspirin, statin, beta-desmond -Discharged with event monitor in place -If patient has any chest pain or syncopal episodes immediately call 911, -Follow-up with cardiology, event monitor Physical Exam Const: COMMON NORMALS: no acute distress and patient oriented x3 Resp: COMMON NORMALS: normal respiratory effort, No retractions, No use of accessory muscles and clear to auscultation bilaterally AUSCULTATION: clear to auscultation bilaterally Cardio: COMMON NORMALS: regular rate, regular rhythm, S1 normal heart sound present and S2 normal heart sound present RATE: regular rate RHYTHM: regular rhythm HEART SOUNDS: S1 normal heart sound present and S2 normal heart sound present GI: COMMON NORMALS: Normal to inspection, nondistended, normoactive bowel sounds present and non-tender Extremity: COMMON NORMALS: no calf tenderness and no pedal edema Neuro: COMMON NORMALS: patient oriented x3 Psych: COMMON NORMALS: mental status grossly normal Discharge Data Studies Completed and Pending Completed Studies During Hospitalization Category Date Time Status CT head wo con* [id number] Routine Cat Scan 06/20/24 13:31 Completed Sestamibi Stress Test Request Routine Exams 06/21/24 11:36 Draft XR chest 1V portable [id number] Stat Exams 06/20/24 11:09 Completed NM dipak perf SPECT r/s* [id number] Routine Nuc Med 06/22/24 11:36 Completed CV carotid duplex BI* [id number] Routine Ultrasound 06/20/24 13:31 Completed CV. echo complete* [id number] Routine Ultrasound 06/20/24 13:31 Completed Pending at discharge Category Date Time Status Basic Metabolic Panel AM LABS Lab 06/23/24 04:00 Ordered Complete Blood Count w/Auto AM LABS Lab 06/23/24 04:00 Ordered Magnesium AM LABS Lab 06/23/24 04:00 Ordered Phosphorus AM LABS Lab 06/23/24 04:00 Ordered Radiology Impressions Chest X-Ray 06/20/24 11:09 IMPRESSION: No acute findings. Carotid Doppler Study 06/20/24 13:31 IMPRESSION: No carotid arterial stenosis. REFERENCES: SRU CRITERIA. The degree of internal carotid artery stenosis is based on criteria defined by the Society of Radiologists in Ultrasound (SRU). Normal is no stenosis. Mild is less than 50% stenosis. Moderate is 50-69% stenosis. Severe is greater than 69% stenosis to near occlusion. Near occlusion is a markedly narrowed lumen. Total occlusion is no detectable patent lumen. Head CT 06/20/24 13:31 IMPRESSION: No acute intracranial abnormality. Laboratory Results WBC 5.03 10^3/uL (3.29-11.43) 06/22/24 02:00 RBC 3.87 10^6/uL (3.85-5.65) 06/22/24 02:00 Hgb 12.60 g/dL (11.27-16.99) 06/22/24 02:00 Hct 37.7 % (37-53) 06/22/24 02:00 MCV 97.4 fl (82-101) 06/22/24 02:00 MCH 32.6 pg (27-33) 06/22/24 02:00 MCHC 33.4 g/dL (30-55) 06/22/24 02:00 RDW 13.1 % (12.1-15.1) 06/22/24 02:00 Plt Count 162 10^3/cmm (157-399) 06/22/24 02:00 MPV 9.6 fL (7.4-10.4) 06/22/24 02:00 Neut % (Auto) 40.1 % 06/22/24 02:00 Lymph % (Auto) 49.9 % 06/22/24 02:00 [place] % (Auto) 8.0 % 06/22/24 02:00 Eos % (Auto) 1.4 % 06/22/24 02:00 Baso % (Auto) 0.4 % 06/22/24 02:00 Neut # (Auto) 2.02 10^3/uL (1.8-7.7) 06/22/24 02:00 Lymph # (Auto) 2.5 10^3/uL (0.8-4.8) 06/22/24 02:00 [place] # (Auto) 0.4 10^3/uL (0.2-0.9) 06/22/24 02:00 Eos # (Auto) 0.1 10^3/uL (0.0-0.8) 06/22/24 02:00 Baso # (Auto) 0.0 10^3/uL (0.0-0.1) 06/22/24 02:00 Nucleated RBC % (auto) 0 % 06/22/24 02:00 Nucleated RBCs # 0.0 /100WBC 06/22/24 02:00 PT 12.60 SECONDS (12.1-14.9) 06/20/24 11:16 INR 0.92 (0.8-1.2) 06/20/24 11:16 APTT 30.2 SECONDS (23.9-36.7) 06/20/24 11:16 D-Dimer 0.54 ug/mLFEU (0-0.59) 06/20/24 13:15 Sodium 140 mmol/L (136-145) 06/22/24 02:00 Potassium 3.6 mmol/L (3.5-5.1) 06/22/24 02:00 Chloride 109 mmol/L (98-107) H 06/22/24 02:00 Carbon Dioxide 23 mmol/L (22-29) 06/22/24 02:00 Anion Gap 11.6 (5-19) 06/22/24 02:00 BUN 15 mg/dL (8-23) 06/22/24 02:00 Creatinine 0.9 mg/dL (0.7-1.2) 06/22/24 02:00 GFR Calculation Not Reportable 06/22/24 02:00 Glucose 93 mg/dL (65-115) 06/22/24 02:00 Estimat Average Glucose 108 06/20/24 13:15 Hemoglobin A1c 5.4 % (4.0-6.0) 06/20/24 13:15 Calculated Osmolality 291 mOsm/kg (285-295) 06/22/24 02:00 Lactic Acid 1.0 mmol/L (0.5-2.2) 06/20/24 13:15 Calcium 8.4 mg/dL (8.5-10.5) L 06/22/24 02:00 Phosphorus 3.2 mg/dL (2.5-4.5) 06/22/24 02:00 Magnesium 2.1 mg/dL (1.7-2.3) 06/22/24 02:00 Total Bilirubin 0.5 mg/dL (0.15-1.2) 06/20/24 11:16 AST 23 U/L (0-40) 06/20/24 11:16 ALT 18 U/L (0-41) 06/20/24 11:16 Alkaline Phosphatase 59 U/L (40-130) 06/20/24 11:16 Troponin T Baseline 25 ng/L (0-15) H 06/20/24 11:16 Troponin T 120 Minute 21.24 ng/L (0-15) H 06/20/24 13:15 Delta Troponin T -3.76 ABS# (0-10) L 06/20/24 13:15 Troponin T Hi Sens 6Hr 20.50 ng/L (0-15) H 06/20/24 17:17 Troponin T Hi Sens 6Hr Delta -4.50 ng/L (0-12) L 06/20/24 17:17 C-Reactive Protein 3.0 mg/L (0.0-4.9) 06/20/24 13:15 NT-Pro-B Natriuret Pep 574 pg/mL (0-450) H 06/20/24 13:15 Total Protein 6.5 g/dL (6.6-8.7) L 06/20/24 11:16 Albumin 4.2 g/dL (3.5-5.2) 06/20/24 11:16 Globulin 2.3 g/dL (1.3-4.6) 06/20/24 11:16 Triglycerides 195 mg/dL (0-150) H 06/20/24 13:15 Cholesterol 174 mg/dL (0-200) 06/20/24 13:15 LDL Cholesterol, Calc 87 mg/dL (50-129) 06/20/24 13:15 HDL Cholesterol 48 mg/dL (60-100) L 06/20/24 13:15 LDL/HDL Ratio 1.81 RATIO (0.00-3.22) 06/20/24 13:15 Cholesterol/HDL Ratio 3.63 mg/dL (1.0-5.00) 06/20/24 13:15 TSH 1.48 uIU/mL (0.27-4.20) 06/20/24 13:15 Urine Color Yellow (Yellow) 06/20/24 17:50 Urine Appearance Clear (CLEAR) 06/20/24 17:50 Urine pH 6.0 (5-7) 06/20/24 17:50 Ur Specific [place] 1.010 (1.005-1.030) 06/20/24 17:50 Urine Protein Negative (Negative) 06/20/24 17:50 Urine Glucose (UA) Negative (Normal) 06/20/24 17:50 Urine Ketones Negative (Negative) 06/20/24 17:50 Urine Blood Negative (Negative) 06/20/24 17:50 Urine Nitrate Negative (Negative) 06/20/24 17:50 Urine Bilirubin Negative (Negative) 06/20/24 17:50 Urine Urobilinogen 0.2 mg/dL (Negative) 06/20/24 17:50 Ur Leukocyte Esterase Negative (Negative) 06/20/24 17:50 Urine RBC 0-2 /hpf (0-2) 06/20/24 17:50 Urine WBC 0-5 /hpf (0-5) 06/20/24 17:50 Ur Squamous Epith Cells 0-5 /hpf (0-5) 06/20/24 17:50 Amorphous Sediment Not Reportable 06/20/24 17:50 Urine Bacteria None seen /hpf (NONE) 06/20/24 17:50 Hyaline Casts 0-4 /lpf H 06/20/24 17:50 Vitals Last Vital Signs Temp 97.9 F 06/22/24 11:41 Pulse 56 L 06/22/24 11:41 Resp 14 06/22/24 11:41 BP 145/71 06/22/24 11:41 Pulse Ox 95 06/22/24 11:41 O2 Del Method Room Air 06/22/24 11:41 Discharge Plan Discharge Patient Disposition: Home Condition: Stable Prescriptions: New atorvastatin 40 mg Tablet 40 mg PO BEDTIME 30 Days Qty: 30 0RF metoprolol tartrate 25 mg Tablet 25 mg PO BID@0900,2100 30 Days Qty: 60 0RF Continued aspirin 81 mg tablet,delayed release (DR/EC) 81 mg PO DAILY PreserVision AREDS [id number] fuzh-ye-[id number] capsule 1 cap PO BID polyethylene glycol 3350 [Miralax] 17 gram/dose powder 17 g PO DAILY PRN (Reason: Constipation) abiraterone 500 mg tablet 1,000 mg PO DAILY Rx Instructions: must be taken on empty stomach, at least 1 hr before or 2 hrs after a meal/food prednisone 5 mg tablet 5 mg PO DAILY omeprazole 40 mg capsule,delayed release(DR/EC) 40 mg PO DAILY 90 Days Qty: 90 1RF propylthiouracil 50 mg tablet 100 mg PO BID Qty: 360 1RF multivitamin Tablet 1 tab PO QAM ascorbate calcium (vitamin C) [Jodi-C] 500 mg Tablet 500 mg PO DAILY dnict-xi-0-cew-sng-yepxote-ast [MegaRed [place]-3 Krill Oil] 1,000-230-60 mg Capsule 1 cap PO DAILY Metamucil 3.4 gram/5.4 gram Powder 1 tbsp PO DAILY PRN (Reason: Constipation) Rx Instructions: mix into at least 8 oz of water or juice before administering tamsulosin 0.4 mg capsule 0.4 mg PO BID Discontinued losartan 25 mg tablet 25 mg PO DAILY Qty: 90 3RF Discharge Orders: Discharge Order (Routine); Ordered 06/22/24 Ordered By: Rayshwan Alves Other Ambulatory Orders: MCT/Event Monitor 30 Days (Routine) Timeframe: 1 Day Facility: [facility] - Location: Radiology Ordered By: Rayshawn Alves Referrals: Rogelio Song MD [Physician] - 07/02/24 12:00 pm (Your follow-up appointment will be with Uma Hale. Also, you are scheduled for an 30 day event monitor to be placed on Jun 25 at 9:00a.m. ) Diana Gonzalez FNP-C [Primary Care Provider] - 06/29/24 9:40 am (This appointment is at the [facility] with Kye Gonzalez. Thank you!) Discharge Diet: Cardiac Discharge Activity: Resume usual activity Patient Instructions: Metoprolol (By mouth), Atorvastatin (By mouth) (Lipitor, Atorvaliq), Chest Pain (DC), Syncope (DC), Hypertension (DC), Chest Pain Stoplight, Opioid Safety Activity Restrictions/Additional Instructions: - If you have any recurrent syncopal episodes please immediately come back to the emergency room ? If you have any chest pain please immediately call 911 ? See primary care provider this week ? See cardiology in 1 week ? Please wear event monitor as prescribed Discharge Attestations Time Spent in Discharge Care*: greater than 30 min Quality Metrics Clinical Quality Measures [ No reported AMI, CVA or VTE this stay] Coding Level of Care Code 65604 Total time (in minutes) for Discharge: 45 Diagnoses Syncope and collapse R55 PVC (premature ventricular contraction) I49.3 Primary hypertension I10
[2024-06-22 13:21] VITALS: BP 145/71; PULSE 61; RESP 18; TEMP 36.6; O2SAT 95
--- NOTE | 2024-06-22 13:42 | PC.NURSE ---
Discharge Note Patient discharged to home via private vehicle accompanied by . Discharge instructions reviewed with patient and/or eligibility services representative. Mobile pharmacy medications and/or prescriptions provided. Belongings/home medications returned. educated pt on new meds common side effects, event monitor and to check BP and heart rate at home twice daily.
== END 2024-06-22 13:50 | disposition home or self-care (01) | DRG 312 ==
LOC: ER 12:37 → CSU 12:48
PROVIDERS: Admitting Provider Family Medicine; Emergency Provider Emergency Medicine; PCP Nurse Practitioner Family; Visit Provider Family Medicine
DX: R55 Syncope and collapse (principal); I10 Essential (primary) hypertension; N40.1 Benign prostatic hyperplasia with lower urinary tract symptoms; R39.14 Feeling of incomplete bladder emptying; N52.9 Male erectile dysfunction, unspecified; K59.00 Constipation, unspecified; M19.90 Unspecified osteoarthritis, unspecified site; E78.5 Hyperlipidemia, unspecified; Z96.641 Presence of right artificial hip joint; I49.3 Ventricular premature depolarization; M54.2 Cervicalgia; Z79.82 Long term (current) use of aspirin; Z85.46 Personal history of malignant neoplasm of prostate
CPT/HCPCS: 36415; 70450; 71045; 78452; 80048; 80053; 80061; 81001; 83036; 83605; 83735; 83880; 84100; 84443; 84484; 85025; 85378; 85610; 85730; 86140; 93005; 93017; 93306; 93880; 94664; 96372; 96375; A9270; A9500; J0280; J1650; J2470; J2785

== ENCOUNTER → 2024-07-02 11:54 | Outpatient (BNVA) | payer MEDICARE, SELFPAY | PROVIDERS: PCP Nurse Practitioner Family; Visit Provider Nurse Practitioner Family | DX: I25.10 Atherosclerotic heart disease of native coronary artery without angina pectoris (principal); I10 Essential (primary) hypertension | CPT/HCPCS: 99214 ==

== ENCOUNTER 2024-11-05 12:18 | Outpatient (CLI) | payer MEDICARE, SELFPAY ==
--- NOTE | 2024-11-05 12:26 | XR_ITS ---
WS: [id number] Lumbar spine, 3 views, 11/05/2024 Clinical Data: M54.50 - Low back pain, unspecified Comparison: None. Findings: No compression fractures or subluxation is seen. There is degenerative disc narrowing at all lumbar levels with prominent anterior osteophytes. There is a dextroscoliosis of the lumbar spine. The transverse processes and SI joints are normal. 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 There is calcification in the wall of the abdominal aorta but no aneurysm. XR/XR lumbar spine 2-3V* [id number] Impression: 1. 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 2. Minimal dextroscoliosis of the lumbar spine.
--- NOTE | 2024-11-05 12:26 | XR_ITS ---
WS: [id number] Right hip, AP and frog-leg views, 11/05/2024 Clinical Data: M25.551 - Pain in right hip Comparison: None. Findings: No fractures or dislocations are seen. Right hip arthroplasty is in good position. No periprosthetic fractures or loosening is seen. The soft tissues are not remarkable. The adjacent pelvis is normal. XR/XR hip RT 2-3V wo/w pel* [id number] Impression: Stable right hip arthroplasty.
== END 2024-11-05 12:19 | disposition home or self-care (01) ==
PROVIDERS: PCP Nurse Practitioner Family; Visit Provider Nurse Practitioner Family
DX: M25.551 Pain in right hip (principal); Z96.641 Presence of right artificial hip joint; M51.369 Other intervertebral disc degeneration, lumbar region without mention of lumbar back pain or lower extremity pain; M25.78 Osteophyte, vertebrae; M41.86 Other forms of scoliosis, lumbar region; I70.0 Atherosclerosis of aorta
CPT/HCPCS: 72100; 73502

== ENCOUNTER 2024-11-12 09:30 | Outpatient (CLI) | payer MEDICARE, SELFPAY ==
--- NOTE | 2024-11-12 09:30 | MR_ITS ---
WS: [id number] MRI LUMBAR SPINE NONCONTRAST HISTORY: M54.50 - Low back pain, unspecified COMPARISON: Radiograph 11/05/2024 TECHNIQUE: Sagittal and axial multisequence imaging is submitted. Degenerative changes in the cervical and thoracic spine. RIGHT rotary scoliosis lumbar spine. Advanced degenerative disc disease and hypertrophic osteophytes at all levels. Small amount of reactive marrow edema at L1, L2 and L3. No acute compression fracture. Conus terminates normally at L1-2 disc level. L1-L2: Annular disc bulging, osteophytic ridging and facet arthritis. Asymmetric disc bulging to the LEFT. Mild RIGHT and moderate LEFT foraminal stenosis. L2-L3: Diffuse annular disc bulging central disc osteophyte extends into the LEFT subarticular recess. There is significant encroachment upon the traversing LEFT L3 nerve root. Facet joint arthritis. LEFT hemilaminectomy defect. Moderate LEFT foraminal stenosis and mild RIGHT foraminal stenosis. L3-L4: Diffuse annular disc bulging with marked ligamentum flavum and facet arthritis. Central disc osteophyte complex. Moderate bilateral foraminal stenosis with mild central and subarticular recess stenosis. There is significant encroachment upon the traversing L4 nerve roots. L4-L5: Annular disc bulging with marked ligamentum flavum and facet arthritis. Mild disc encroachment into the subarticular recesses. Mild central with moderate bilateral subarticular recess and foraminal stenosis, RIGHT greater than LEFT. RIGHT foraminal disc protrusion is likely. L5-S1: Diffuse annular disc bulging, osteophytic ridging, ligamentum flavum and facet arthritis. Central disc osteophyte contacts the S1 nerve roots. Mild bilateral subarticular recess and moderate foraminal stenosis. Paravertebral soft tissues are negative. MR/MR lumbar spine wo con* [id number] IMPRESSION: 1. Advanced lumbar degenerative scoliosis and spondylosis. 2. Multiple levels of central and foraminal stenosis due to combination of dis c, osteophytosis, ligamentum flavum and facet arthritis. 3. L1-2: Moderate LEFT and mild RIGHT foraminal stenosis. 4. L2-3: Moderate LEFT and mild RIGHT foraminal stenosis. LEFT hemilaminectomy defect. Disc encroachment upon the traversing LEFT L3 nerve root in the subart icular recess. 5. L3-4: Moderate bilateral foraminal stenosis with mild central and subarticu lar recess stenosis. 6. L4-5: Moderate bilateral subarticular recess and foraminal stenosis, RIGHT greater than LEFT. RIGHT foraminal disc protrusion is likely. 7. L5-S1: Moderate bilateral foraminal stenosis and mild subarticular recess s tenosis by disc osteophyte.
== END 2024-11-12 09:31 | disposition home or self-care (01) ==
LOC: RAD 09:34
PROVIDERS: PCP Nurse Practitioner Family; Visit Provider Nurse Practitioner Family
DX: M47.816 Spondylosis without myelopathy or radiculopathy, lumbar region (principal); Z98.890 Other specified postprocedural states; M51.369 Other intervertebral disc degeneration, lumbar region without mention of lumbar back pain or lower extremity pain; M25.78 Osteophyte, vertebrae; M41.86 Other forms of scoliosis, lumbar region; M47.896 Other spondylosis, lumbar region; M48.061 Spinal stenosis, lumbar region without neurogenic claudication; M24.28 Disorder of ligament, vertebrae; M96.89 Other intraoperative and postprocedural complications and disorders of the musculoskeletal system; R93.7 Abnormal findings on diagnostic imaging of other parts of musculoskeletal system; M50.30 Other cervical disc degeneration, unspecified cervical region; M51.34 Other intervertebral disc degeneration, thoracic region; M51.379 Other intervertebral disc degeneration, lumbosacral region without mention of lumbar back pain or lower extremity pain; M47.897 Other spondylosis, lumbosacral region; M48.07 Spinal stenosis, lumbosacral region
CPT/HCPCS: 72148

== ENCOUNTER → 2024-12-23 15:08 | Outpatient (BNVA) | payer MEDICARE, SELFPAY | PROVIDERS: PCP Nurse Practitioner Family; Visit Provider Internal Medicine | DX: R55 Syncope and collapse (principal); I65.23 Occlusion and stenosis of bilateral carotid arteries; I10 Essential (primary) hypertension; E78.5 Hyperlipidemia, unspecified; M19.90 Unspecified osteoarthritis, unspecified site; N40.1 Benign prostatic hyperplasia with lower urinary tract symptoms | CPT/HCPCS: 99214 ==

== ENCOUNTER 2025-01-05 12:22 | Outpatient (CLI) | payer MEDICARE, SELFPAY ==
--- NOTE | 2025-01-05 12:45 | USCV_ITS ---
Antwan Salazar Age: 84 Gender: M : 1940 Exam Date: 01/05/2025 12:53 Ordering Phys: Vikas Tavarez M.D ([email or web address]) Technologist: AMBREEN [place] [facility] [place]: stenosis Risk Factors: Previous Vascular Surgery: Right Brachial BP: / Left Brachial BP: / Right Left Velocity (cm/s) Spectral Plaque Velocity (cm/s) Spectral Plaque Syst/Diast Broadening Syst/Diast Broadening 62.10/ 11.50 Prox CCA 65.40 / 11.90 72.40/ 15.40 Mid CCA 57.40 / 11.90 63.40/ 11.50 Distal CCA 52.10 / 5.20 64.60/ 16.70 Prox ICA 56.30 / 12.00 69.90/ 15.80 Mid ICA 50.00 / 15.00 51.90/ 14.80 Distal ICA 59.20 / 16.00 93.20 ECA 63.80 1.00 ICA/CCA 1.10 Antegrade Vertebral Antegrade 25.10/ 5.30 cm/s 36.10/ 10.10 cm/s Bi Subclavian Bi 78.80 104.4 0 CONCLUSIONS Right ICA stenosis <50%. Moderate atheromatous plaque right carotid bulb/ICA. Right ICA stenosis <50%. Moderate atheromatous plaque left carotid bulb/ICA. Intimal thickening in the common carotid arteries and internal carotid arteries bilaterally. Normal antegrade Doppler flow noted in the right vertebral artery. Normal antegrade Doppler flow noted in the left vertebral artery. Marc Hills MD (Electronically Signed) Final Date: 05 Jan 2025 15:03 S
== END 2025-01-05 12:23 | disposition home or self-care (01) ==
PROVIDERS: PCP Nurse Practitioner Family; Visit Provider Internal Medicine
DX: I65.23 Occlusion and stenosis of bilateral carotid arteries (principal)
CPT/HCPCS: 93880

== ENCOUNTER → 2025-06-17 12:07 | Outpatient (BNVA) | payer MEDICARE, SELFPAY | PROVIDERS: PCP Nurse Practitioner Family; Visit Provider Nurse Practitioner Family | DX: I10 Essential (primary) hypertension (principal) | CPT/HCPCS: 80053; 80061; 84443; 85025 ==